=== PATIENT | female | born 1955 | race Caucasian/White ===

== ENCOUNTER → 2021-09-04 13:02 | Outpatient (CLI) | payer OTHER, SELFPAY ==
--- NOTE | 2021-09-04 13:12 | XR_ITS ---
PROCEDURE: XR CHEST 2V CLINICAL HISTORY: rule out tb COMPARISON: No exams were available for comparison FINDINGS: The cardiomediastinal silhouette and pulmonary vascularity are within normal limits. The lungs are clear without infiltrates, suspicious nodules, or pleural effusions. Faint nodular opacity present to the right the right T7 transverse process possibly due to summation artifact or granuloma. Calcified granuloma is present in the left lung base medially. There is moderate thoracolumbar scoliosis convex right. There is also kyphosis of the thoracic spine. IMPRESSION: No acute finding. No evidence of active granulomatous process. Calcified granulomas are present consistent with granulomatous disease Dictated by: Enio Victoria MD 09/04/2021 14:14 Enio Victoria MD in [place] 09/04/2021 14:14
== END ==
PROVIDERS: PCP Emergency Medicine; Visit Provider Nurse Practitioner Family
DX: R76.11 Nonspecific reaction to tuberculin skin test without active tuberculosis (principal)
CPT/HCPCS: 71046

== ENCOUNTER 2023-04-23 08:06 | Emergency (ER) | payer BC, SELFPAY ==
[2023-04-23 08:07] VITALS: BP 127/82; PULSE 111; RESP 18; TEMP 36.3; O2SAT 93; BMI 18.8
[2023-04-23 08:30] VITALS: BP 120/78; PULSE 53; O2SAT 94
--- NOTE | 2023-04-23 08:45 | XR_ITS ---
FINAL REPORT CLINICAL HISTORY: eval right wrist for FB, glass COMPARISON: None FINDINGS: RIGHT WRIST Three views demonstrate no acute fracture or dislocation. The visualized joint spaces are normally aligned. The soft tissues are unremarkable. No evidence of radiopaque foreign body. IMPRESSION: No evidence of radiopaque foreign body. No acute bony abnormality. Reviewed, Interpreted and Dictated by Lyle Avilez III, MD Transcribed by Shiela Anderson Authenticated and [facility]
--- NOTE | 2023-04-23 08:51 | HMH.EDGENADL ---
Discharge Plan Disposition Patient Disposition: Home, Self-Care Prescriptions Prescriptions: No Action escitalopram oxalate [Lexapro] 20 mg tablet 20 mg PO DAILY Qty: 90 2RF Referrals Follow up/Referrals: Mikey Roach MD [Primary Care Provider] - See instructions Clinical Impressions Clinical Impression: Laceration of wrist, right Instructions Patient Instructions: DI for Laceration Repair Discharge ED Provider: Sam Rubio General Adult HPI General Chief complaint: Wound/Laceration Stated complaint: AO@home 04/23 RT wrist lac Time Seen by Provider: 04/23/23 08:21 Mode of Arrival: Ambulatory Source of Information: Patient Limitations: No Limitations Description of Symptoms (Recalled from ER Triage Doc. by RN): Presents to ED with complaints of a laceration to the right wrist that occured during washing dishes [employer]. Denies blood thinners. Manual pressure applied upon arrvial, active bleeding noted. +PMS. Tetanus UTD History of Present Illness HPI narrative: Patient is a 67-year-old female presenting with a right wrist laceration. She was cleaning dishes when a glass broke and a large shard of glass lacerated the volar aspect of her right wrist. She has had a pressure dressing on this since this happened and drove in. There is no pulsatile bleeding associate with this. She believes she is up-to-date on tetanus. There were no foreign bodies that she is concerned about as this was a large shard of glass. Related Data Previous Rx's Medication Instructions Recorded escitalopram oxalate 20 mg tablet 20 mg PO DAILY #90 tabs 04/08/22 (Lexapro) Allergies Allergy/AdvReac Type Severity Reaction Status Date / Time No Known Allergies Allergy Unverified 07/19/19 12:47 [facility] Disclaimer: The information contained in this section may have been updated after the patient was seen, as this information can be updated by other users. Social History Smoking Status: Current every day smoker alcohol intake: never current occupational status: other Travel in the last 8 weeks: None ROS Obtained: Yes All systems reviewed & no additional complaints except as documented Physical Exam General General appearance: alert Respiratory Respiratory exam: Present normal lung sounds bilaterally Cardiovascular Cardiovascular exam: Present regular rate; Absent tachycardia Extremities Exam Extremities exam: Present other (Right wrist there is a 2 cm vertically oriented laceration over the radial aspect of the distal forearm there is no pulsatile bleeding but constant venous oozing) Neurological Exam Neurological exam: Present alert and oriented X3 Medical Decision Making Js Inquiry Pt receiving controlled substance: No Vital Signs: 04/23/23 08:07 04/23/23 08:30 04/23/23 09:00 Temperature 97.4 F L Temperature Source Oral Pulse Rate 53 L 89 Pulse Rate [Left] 111 H Respiratory Rate 18 Blood Pressure 120/78 115/71 Blood Pressure [Left Arm] 127/82 Blood Pressure Mean [Left Arm] 97 Blood Pressure Source [Left Arm] Automatic Cuff Blood Pressure Position Sitting Blood Pressure Position [Left Arm] Sitting 02 Sat by Pulse Oximetry 93 L 94 L 92 L Oxygen Delivery Method Room Air Orders (Tests/Meds): ORDERS Category Date Time Status Wrist XR right minimum 3 views [XR wrist RT min 3V] Exams 04/23/23 08:45 Taken Stat Medical Decision Narrative: 67-year-old female presenting with laceration to the volar wrist. Laceration was repaired. There is some constant oozing after this we placed a Coban dressing and will reassess in about 30 minutes to make sure that there is not an expanding or ongoing hemorrhage. This was just superficial to the radial artery however there was no evidence of any injury to the radial artery or its branches as there is no arterial pulsatile bleeding. X-ray has been obtained as well to evaluate and rule out foreign body that has
[2023-04-23 09:00] VITALS: BP 115/71; PULSE 89; O2SAT 92
[2023-04-23 09:30] VITALS: BP 95/62; PULSE 95; O2SAT 92
[2023-04-23 09:43] VITALS: BP 100/74; PULSE 88; RESP 16; TEMP 36.3; O2SAT 94
== END 2023-04-23 09:44 | disposition home or self-care (01) ==
PROVIDERS: Emergency Provider Student in an Organized Health Care Education/Training Program; PCP Emergency Medicine
DX: S61.511A Laceration without foreign body of right wrist, initial encounter (principal); W25.XXXA Contact with sharp glass, initial encounter; Y93.G1 Activity, food preparation and clean up; F17.200 Nicotine dependence, unspecified, uncomplicated
CPT/HCPCS: 12001; 73110; 99283

== ENCOUNTER 2024-10-06 17:31 | Inpatient (IN) | payer BC, SELFPAY ==
[2024-10-06] VITALS (7 sets, daily range): BP systolic 108–138; BP diastolic 68–82; PULSE 63–115; RESP 18–20; TEMP 36.7–36.8; O2SAT 91–93; BMI 19.2
--- NOTE | 2024-10-06 17:34 | ED_ITS ---
<Statement entered by Sam Rubio MD - 10/06/24 21:31> I was consulted by the MICHAEL, and we discussed the complexity of the problems being addressed. I approved the treatment and management plan for this patient's care in the emergency department, thus performing a substantive portion of the medical decision making. Sam Rubio MD, [place], FACEP Discharge Plan Disposition Patient Disposition: Admitted Condition: Fair Clinical Impressions Clinical Impression: Acute exacerbation of chronic obstructive pulmonary disease, Acute hypoxemic respiratory failure Discharge ED Provider: Sam Rubio HPI General Chief Complaint: Upper Respiratory Infection Stated Complaint: SOA,weak Time Seen by Provider: 10/06/24 17:34 History of Present Illness HPI narrative: Patient presents for evaluation of shortness of air, congestion and generalized weakness. 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 Patient states however the last couple of days she has had increasing weakness increased work of breathing and dyspnea on exertion. Patient does have a known history of COPD not on long- term oxygen nor utilizing nebulizers. Patient is also a longtime smoker smoking approximately a pack a day. She denies any fever chills hemoptysis hematochezia melena nausea vomiting diarrhea. Related Data Previous Rx's ?Medication ?Instructions ?Recorded escitalopram oxalate 20 mg tablet 20 mg PO DAILY #90 tabs 04/08/22 (Lexapro) Allergies Allergy/AdvReac Type Severity Reaction Status Date / Time No Known Allergies Allergy Unverified 07/19/19 12:47 [facility] Disclaimer: The information contained in this section may have been updated after the patient was seen, as this information can be updated by other users. Medical History (Updated 10/06/24 @ 20:06 by Katelyn Shaikh RN) COPD (chronic obstructive pulmonary disease) Surgical History (Updated 10/06/24 @ 20:06 by Katelyn Shaikh RN) History of tubal ligation Family History (Updated 10/06/24 @ 20:06 by Katelyn Shaikh RN) Other COPD (chronic obstructive pulmonary disease) Cancer Social History (Updated 10/06/24 @ 20:06 by Katelyn Shaikh RN) Smoking Status: Current every day smoker alcohol intake: never current occupational status: employed and other Travel in the last 8 weeks: None Have you lived/traveled outside US in past 30 days?: No Contact w/someone who lives/traveled outside US past 30 days?: No Exposure to someone with infectious disease in past 14 days?: No Do you have a fever (greater than 100.4 F or 38 C)?: No Have you tested positive for COVID-19: No Exposed to someone with COVID-19 in past 14 days?: No Do you have a sore throat?: No Do you have a cough?: No Do you have any weakness?: Yes Do you have any diarrhea?: No Are you experiencing any unusual bleeding?: No Do you have any muscle aches/pain?: No Do you have any abdominal pain?: No Are you experiencing loss of taste or smell?: No ROS Obtained: Yes Systems reviewed as appropriate & no additional complaints except as documented Physical Exam General General appearance: alert and in no apparent distress Respiratory Respiratory exam: Present wheezes and accessory muscle use; Absent respiratory distress Cardiovascular Cardiovascular exam: Present tachycardia Neurological Exam Neurological exam: Present alert and oriented X3 HEART Score HEART Score HEART Score assessment performed?: No Critical Care Critical Care Time Critical Care Time: No Medical Decision Making Medical Records Medical records reviewed: Yes I reviewed the patient's medical records. Js Inquiry Pt receiving controlled substance: No Vital Signs Vital Signs: 10/06/24 17:41 10/06/24 18:30 10/06/24 19:00 Temperature 98.0 F Temperature Source Oral Pulse Rate 96 H Pulse Rate [Right Radial] 115 H Respiratory Rate 20 Blood Pressure 123/73 119/70 Blood Pressure [Right Arm] 138/82 Blood Pressure Mean 80 Blood Pressure Mean [Right Arm] 100 02 Sat by Pulse Oximetry 92 L 91 L Oxygen Delivery Method Room Air Room Air 10/06/24 19:40 Temperature 98.2 F Temperature Source Pulse Rate 63 Pulse Rate [Right Radial] Respiratory Rate 18 Blood Pressure 108/68 L Blood Pressure [Right Arm] Blood Pressure Mean Blood Pressure Mean [Right Arm] 02 Sat by Pulse Oximetry Oxygen Delivery Method Room Air Lab Data Lab results reviewed: Yes I reviewed the patient's lab results. Labs: Lab Results 10/06/24 17:45: WBC 12.6 H, RBC 5.63 H, Hgb 16.6 H, Hct 50.8 H, MCV 90.2, MCH 29.4, MCHC 32.6, RDW 12.9, Plt Count 251, MPV 7.7, Neut % (Auto) 79.6, Lymph % (Auto) 12.9, [place] % (Auto) 5.9, Eos % (Auto) 0.7, Baso % (Auto) 0.9, Neut # (Auto) 10.0 H, Lymph # (Auto) 1.6, [place] # (Auto) 0.8, Eos # (Auto) 0.1, Baso # (Auto) 0.1, VBG pH 7.39, VBG pCO2 40.9, VBG pO2 43.4 H, VBG HCO3 24.1, VBG Total CO2 25.3, VBG O2 Saturation 82.6 H, VBG Base Excess -0.9, VBG Lactic Acid 1.3, S odium 132 L, Potassium 3.9, Chloride 100, Carbon Dioxide 27, Anion Gap 8.9, BUN 9, Creatinine 0.50 L, Estimated Creat Clear 41, Estimated GFR 123, Est GFR ( Amer) 149, Glucose 111 H, Calcium 9.0, Total Bilirubin 0.7, AST 35, ALT 21, Alkaline Phosphatase 78, Total Protein 7.5, Albumin 4.5, Globulin 3.0, Albumin/Globulin Ratio 1.5 10/06/24 17:55: SARS-CoV-2 (PCR) Not detected, Influenza A Untype (PCR) Not detected, Influenza Type B (PCR) Not detected 10/06/24 17:45 10/06/24 17:45 Response Orders (Tests/Meds): ED MEDICATIONS Discontinued Medications Generic Name Dose Route Start Last Admin Trade Name Freq PRN Reason Stop Dose Admin Albuterol/Ipratropium 3 ml 10/06/24 17:44 10/06/24 18:03 Ipratropium/Albuterol 3 Ml Neb 10/06/24 17:45 3 ml ONCE ONE Administration Albuterol/Ipratropium 9 ml 10/06/24 18:54 10/06/24 20:21 Ipratropium/Albuterol 3 Ml Neb 10/06/24 18:55 9 ml ONCE ONE Administration Dexamethasone Sodium Phosphate 10 mg 10/06/24 17:44 10/06/24 18:02 Dexamethasone 4mg/Ml 5ml Mdv IV 10/06/24 17:45 10 mg ONCE ONE Administration ORDERS Category Date Time Status Chest XR 2 view (NOT portable) [XR chest 2V] Stat Exams 10/06/24 17:43 Completed CBC w/Auto Diff [Complete Blood Count Auto Diff] Stat Lab 10/06/24 17:45 Completed CMP [Comprehensive Metabolic Panel] Stat Lab 10/06/24 17:45 Completed Full Resp Panel w/COVID ([facility]) Routine Lab 10/06/24 19:41 Received HIV (1&2) Antibody Rapid Stat Lab 10/06/24 17:45 Received Hep C Ab with Reflex to RNA Stat Lab 10/06/24 17:45 Received Rapid PCR Covid and Flu A/B Stat Lab 10/06/24 17:55 Completed VBG [Venous Blood Gas] Stat RT 10/06/24 17:45 Completed MDM Narrative Medical Decision Narrative: In summary patient is a 69-year-old female who presents to the emergency department for evaluation of dyspnea. Patient is initially normotensive at a blood pressure of 138/82 tachycardic at 115 breathing 20 times a minute satting at 90% on room air upon arrival, afebrile. Physical exam is remarkable for end expiratory wheezing in all 4 moralez and rhonchi in the lower lung moralez with accessory muscle use. Differential diagnosis includes COPD exacerbation versus pneumonia versus viral infection etc. Initial workup will be conducted with hematologic labs plain film chest x-ray COVID and flu swab. Initial interventions include Decadron DuoNeb. Initial workup reviewed by me shows her hematologic labs are nonactionable COVID and flu swabs are negative and my informed interpretation of her plain film chest x-ray shows no acute infiltrates but does show chronic changes of COPD. Upon repeat evaluation patient still is subjectively short of breath at rest. Given this I had the patient ambulate about the emergency department and her oxygen saturation dropped to 83%. Given this I had interactive discussion with hospital medicine regarding patient management and she will be admitted for further evaluation and care.
--- NOTE | 2024-10-06 17:43 | XR_ITS ---
PROCEDURE INFORMATION: Exam: XR Chest Exam date and time: 10/06/2024 5:50 PM Age: 69 years old Clinical indication: Dyspnea TECHNIQUE: Imaging protocol: Radiologic exam of the chest. Views: 2 views. COMPARISON: No relevant prior studies available. FINDINGS: Lungs: No evidence of acute pulmonary disease or infiltrates Pleural spaces: No large effusion or pneumothorax. Heart/Mediastinum: No evidence of mediastinal widening or cardiac silhouette enlargement; the mediastinum and heart appear within normal limits for contour and size. Vasculature: There are calcifications of the aortic arch. Bones/joints: There is a dextroscoliotic curvature of the spine. Other findings: The patient is rotated on the examination which somewhat alters the expected anatomic relationships and limits the study. IMPRESSION: No dense parenchymal consolidation, pleural effusion, or pneumothorax.
--- NOTE | 2024-10-06 17:46 | ECG_ITS ---
APPROVED REPORT Exam: Resting ECG HR:101 bpm ECG Measurements Heart Rate 101 AXES WA 162 P 80 QRSd 68 QRS 73 QT 319 T 73 QTc 377 Conclusion SINUS TACHYCARDIA ABNORMAL RHYTHM ECG UNCONFIRMED REPORT Electronically signed by : Jaydon Rubio, 10/06/2024 23:03:19
[2024-10-06 17:55] LABS: Basophils # 0.1 K/mm3 (0-0.2); Basophils % 0.9 % (0.1-2.0); Eosinophils # 0.1 K/mm3 (0.0-0.4); Eosinophils % 0.7 % (0.1-12.0); Hematocrit 50.8 % (37.0-47.0); Hemoglobin 16.6 g/dL (12.2-16.2); Lymphocytes # 1.6 K/mm3 (0.7-4.5); Lymphocytes % 12.9 % (10-50); Mean Corpuscular HGB Conc 32.6 g/dL (31.8-35.4); Mean Corpuscular Hemoglobin 29.4 pg (27.0-31.2); Mean Corpuscular Volume 90.2 fl (81-99); Mean Platelet Volume 7.7 fl (7.4-10.4); Monocytes # 0.8 K/mm3 (0.1-1.0); Monocytes % 5.9 % (1.7-9.3); Neutrophils % 79.6 % (37.0-80.0); Platelet Count 251 K/mm3 (142-424); Red Blood Count 5.63 M/mm3 (4.20-5.40); Red Cell Distribution Width 12.9 % (11.5-17.5); White Blood Count 12.6 K/mm3 (4.8-10.8)
[2024-10-06 17:56] LABS: Lactate Venous 1.3 mmol/L (0.4-2.0); VBG Base Excess -0.9 mmol/L (-2.4-2.3); VBG HCO3 24.1 mmol/L (23-30); VBG Oxygen Saturation 82.6 % (50-70); VBG PCO2 40.9 mmol/L (35-51); VBG PH 7.39 mmol/L (7.31-7.41); VBG PO2 43.4 mmol/L (28-40); VBG Total CO2 25.3 mmol/L (23-27)
[2024-10-06 17:59] LABS: Coronavirus 19, PCR Not Detected (NotDetected); Influenza A, PCR Not Detected (NotDetected); Influenza B, PCR Not Detected (NotDetected)
[2024-10-06 18:02] LABS: Albumin Level 4.5 g/dl (3.5-5.0); Chloride 100 mmol/L (98-107); Potassium 3.9 mmoL/L (3.5-5.1); Sodium 132 mmol/L (136-145)
[2024-10-06] MEDS: DEXAMETHASONE 4MG/ML 5ML MDV 10 MG IV (18:02)
[2024-10-06] MEDS: IPRATROPIUM/ALBUTEROL 3 ML NEB IH ×2 (18:03→23:24)
[2024-10-06 18:05] LABS: Alanine Aminotransferase 21 U/L (12-78); Albumin/Globulin Ratio 1.5 (1.1-1.8); Alkaline Phosphatase 78 U/L (38-126); Anion Gap 8.9 mEq/L (5-15); Aspartate Amino Transferase 35 U/L (14-36); Bilirubin,Total 0.7 mg/dl (0.2-1.3); Blood Urea Nitrogen 9 mg/dl (7-17); Carbon Dioxide 27 mmol/L (22.0-30.0); Creatinine Clearance Estimated 41 mL/min (50-200); Estimated Glomerular Filt Rate 123 ml/min (>60); GFR (African American) 149 ML/MIN (>60); Glucose 111 mg/dl (74-100); Total Protein,Serum 7.5 g/dl (6.3-8.2)
--- NOTE | 2024-10-06 18:48 | PC.NURSE ---
pt ambulated around the er making one complete lap with pulse ox reader and myself at pts side oxygen dropped to 87 on ra
--- NOTE | 2024-10-06 19:13 | PC.NURSE ---
Report recieved from January RN Pt resting quietly in bed Skin pink warm and dry Pt on O2 per nasal cannula REsp full and easy. Speech clear and appropriate
--- NOTE | 2024-10-06 19:36 | PC.NURSE ---
Report called to Katelyn RN Pt awaiting transport to the floor. Pt aware of plans for admission at bedside
[2024-10-06 19:45] LABS: Adenovirus,PCR Not Detected (NotDetected); Bordetella Pertussis Not Detected (NotDetected); Chlamydophila Pneumoniae, PCR Not Detected (NotDetected); Coronavirus 19, PCR Not Detected (NotDetected); Coronavirus 229E Not Detected (NotDetected); Coronavirus NL63 Not Detected (NotDetected); Coronavirus OC43 Not Detected (NotDetected); Coronovirus HKU1,PCR Not Detected (NotDetected); Human Metapneumovirus Not Detected (NotDetected); Influenza A, PCR Not Detected (NotDetected); Influenza AH1, 2009 Not Detected (NotDetected); Influenza AH1, PCR Not Detected (NotDetected); Influenza AH3,PCR Not Detected (NotDetected); Influenza B, PCR Not Detected (NotDetected); Mycoplasma Pneumoniae, PCR Not Detected (NotDetected); Parainfluenza 1, PCR Not Detected (NotDetected); Parainfluenza 2, PCR Not Detected (NotDetected); Parainfluenza 3, PCR Not Detected (NotDetected); Parainfluenza 4, PCR Not Detected (NotDetected); Respiratory Syncytial Virus Not Detected (NotDetected)
--- NOTE | 2024-10-06 19:46 | PC.NURSE ---
Patient arrived to floor via stretcher from ED at 19:44.
[2024-10-06] MEDS: IPRATROPIUM/ALBUTEROL 3 ML NEB 9 ML IH (20:21)
--- NOTE | 2024-10-06 20:27 | PC.NURSE ---
Admission and home medication reconciliation completed. Shane ADAMS was informed at this time.
--- NOTE | 2024-10-06 21:33 | P.HP_ITS ---
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 Patient has been suffering from mellissa rtness of breath productive cough, GARLAND since last night. Also admits to hot/cold spells occurring since Thursday. Patient had 1 episode of diarrhea this afternoon. States she smokes daily, but has never been diagnosed with COPD. Also denies black lung, asthma, restrictive or obstructive lung disease history. 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 Patient COVID-negative in emergency room. Denies recent travel, chest pain, lower extremity swelling, blurry vision, headaches, abdominal pain, ataxia. Patient also denies history of MIs, CVA, or obstructive sleep apnea. Patient's present with patient emergency room and collaborates patient's story. Portable chest x-ray done in emergency room shows no infiltrates, effusions, or acute lung disease. [facility] Disclaimer: The information contained in this section may have been updated after the patient was seen, as this information can be updated by other users. Medical History (Updated 10/07/24 @ 00:02 by Indra Lynn MD) COPD (chronic obstructive pulmonary disease) Surgical History (Updated 10/06/24 @ 20:06 by Katelyn Shaikh RN) History of tubal ligation Family History (Updated 10/06/24 @ 20:06 by Katelyn Shaikh RN) Other COPD (chronic obstructive pulmonary disease) Cancer Social History (Updated 10/06/24 @ 20:06 by Katelyn Shaikh RN) Smoking Status: Current every day smoker alcohol intake: never current occupational status: employed and other Travel in the last 8 weeks: None Have you lived/traveled outside US in past 30 days?: No Contact w/someone who lives/traveled outside US past 30 days?: No Exposure to someone with infectious disease in past 14 days?: No Do you have a fever (greater than 100.4 F or 38 C)?: No Have you tested positive for COVID-19: No Exposed to someone with COVID-19 in past 14 days?: No Do you have a sore throat?: No Do you have a cough?: No Do you have any weakness?: Yes Do you have any diarrhea?: No Are you experiencing any unusual bleeding?: No Do you have any muscle aches/pain?: No Do you have any abdominal pain?: No Are you experiencing loss of taste or smell?: No Other Medical History Have you received the Flu Vaccine for this season: Yes Have you received the Pneumonia Vaccine: No Review of Systems Review of Systems Review of systems:: pertinent systems reviewed and negative unless documented below Constitutional Constitutional: Reports system reviewed and no additional complaints, except as documented Meds Home Medications and Allergies Home Medications ?Medication ?Instructions ?Recorded ?Confirmed ?Type escitalopram oxalate 20 mg tablet 20 mg PO DAILY #90 tabs 04/08/22 10/06/24 Rx (Lexapro) New Prescriptions to Start Prescriptions: Allergies Allergy/AdvReac Type Severity Reaction Status Date / Time No Known Allergies Allergy Unverified 07/19/19 12:47 Exam Data for Last 24 hours Vital signs and Labs for Last 24 Hours: Temp Pulse Resp BP Pulse Ox O2 Del Method O2 Flow Rate 98.2 F 104 H 18 108/68 L 93 L Nasal Cannula 2 10/06/24 19:40 10/06/24 20:22 10/06/24 19:40 10/06/24 19:40 10/06/24 20:22 10/06/24 20:22 10/06/24 20:22 Laboratory Results - last 24 hr 10/06/24 17:45: WBC 12.6 H, RBC 5.63 H, Hgb 16.6 H, Hct 50.8 H, MCV 90.2, MCH 29.4, MCHC 32.6, RDW 12.9, Plt Count 251, MPV 7.7, Neut % (Auto) 79.6, Lymph % (Auto) 12.9, [place] % (Auto) 5.9, Eos % (Auto) 0.7, Baso % (Auto) 0.9, Neut # (Auto) 10.0 H, Lymph # (Auto) 1.6, [place] # (Auto) 0.8, Eos # (Auto) 0.1, Baso # (Auto) 0.1, VBG pH 7.39, VBG pCO2 40.9, VBG pO2 43.4 H, VBG HCO3 24.1, VBG Total CO2 25.3, VBG O2 Saturation 82.6 H, VBG Base Excess -0.9, VBG Lactic Acid 1.3, Sodium 132 L, Potassium 3.9, Chloride 100, Carbon Dioxide 27, Anion Gap 8.9, BUN 9, Creatinine 0.50 L, Estimated Creat Clear 41, Estimated GFR 123, Est GFR ( Amer) 149, Glucose 111 H, Calcium 9.0, Total Bilirubin 0.7, AST 35, ALT 21, Alkaline Phosphatase 78, Total Protein 7.5, Albumin 4.5, Globulin 3.0, Albumin/Globulin Ratio 1.5 10/06/24 17:55: SARS-CoV-2 (PCR) Not detected, Influenza A Untype (PCR) Not detected, Influenza Type B (PCR) Not detected I & O for Last 24 hours: Intake & Output 10/03/24 10/04/24 10/05/24 10/06/24 23:59 23:59 23:59 23:59 Weight 47.627 kg *Routine HEENT Exam Head: Present normocephalic Eye: Present EOMI and normal accommodation ENT: Present mucous membranes moist *Routine Neck Exam Neck: Present supple and full ROM *Routine Respiratory Exam Respiratory: Present prolonged expiratory phase and diminished air movement *Routine Cardiovascular Exam Cardiovascular: Present RRR, Normal S1 and Normal S2 *Routine Abdominal Exam Abdominal: Present soft and normoactive bowel sounds *Routine Rectal Exam Rectal:: deferred *Routine Genitalia Exam Genitalia:: deferred *Routine Extremities Exam Extremities: Present full ROM *Routine Skin Exam Skin: Present intact *Routine Neurological Exam Neurological: Present alert and oriented X3 Assessment and Plan *Assessment and plan (1) Acute hypoxemic respiratory failure: Status: Acute Category: Medical Code(s): J96.01 - Acute respiratory failure with hypoxia (2) Acute exacerbation of chronic obstructive pulmonary disease: Status: Acute Category: Medical Code(s): J44.1 - Chronic obstructive pulmonary disease with (acute) exacerbation (3) Acute bronchitis: Status: Acute Category: Medical Code(s): J20.9 - Acute bronchitis, unspecified 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 Patient has been suffering from shortness of breath productive cough, [place] since last night. Portable chest x- ray done in emergency room shows no infiltrates, effusions, or acute lung disease. Problems as listed below: ?Labs reviewed at time of hospital admission: ? WBC 12.6, Hg 16.6, platelets 251, NA 132, K3.9, CL 100, CO2 27, BUN 9, CR 0.5, GLU 111. I will repeat CBC/mag/BMP in AM. Acute bronchitis likely secondary to undiagnosed COPD: ? Admits to daily smoking, but does not visit doctors. Likely suffering from un diagnosed COPD. Solu-Medrol 40 mg IV every 6, DuoNebs 3 mL inhaled Q6, albuterol 2.5 mg inhaled Q6 as needed shortness of breath. Consult pulmonary since patient will likely need outpatient follow-up. Home oxygen evaluation since patient desatted to 80% in emergency room. Doxycycline 100 mg IV every 12. Wean from oxygen as tolerated during this hospitalization. I will order respiratory panel, sputum culture during hospitalization. Hyponatremia possibly dehydration versus COPD related SIADH: ? Check urine osmolarity, urine sodium, urine creatinine. Cautiously start 75 cc/h normal saline overnight to empirically treat patient for dehydration. Recheck sodium levels in AM. Daily smoker: 12 minutes smoking sensation education given by myself in emergency room. Nicotine patch 21 mg transdermal daily as needed nicotine cravings. PPx Lovenox 40 mg subcutaneous daily CODE STATUS DNI per patient request MDM: [place]: Moderate. Patient suffering from acute COPD exacerbation with systemic weakness/shortness of breath. Data: High. See above. Patient's acted as independent historian during interview today. I spoke with the emergency room physician and agree the patient requires hospitalization due to hypoxia in emergency room after multiple breathing treatments/glucocorticoids. Risk: Moderate. Prescription drug management as listed above. Solu-Medrol IV, IV doxycycline, DuoNebs as listed above. I made decision to admit patient to hospital due to failing ER management of acute bronchitis. 35 minutes of total care time spent on patient by Dr. Lynn 10/06/2024
[2024-10-06] MEDS: DOXYCYCLINE HYCL 100 MG TABLET PO (22:07)
[2024-10-06] MEDS: METHYLPREDNISOLONE SOD SUCC 40MG VIAL 40 MG IV (22:07)
--- NOTE | 2024-10-06 22:13 | PC.NURSE ---
Patient's oxygen flow via nasal cannula was humidified at this time per her report of dry mucous membranes.
[2024-10-06 22:46] LABS: Rhinovirus/Enterovirus Detected (NotDetected)
--- NOTE | 2024-10-06 23:25 | P.HP_ITS ---
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 Patient has been suffering from shortness of breath productive cough, GARLAND since last night. Also admits to h ot/cold spells occurring since Thursday. Patient had 1 episode of diarrhea this afternoon. States she smokes daily, but has never been diagnosed with COPD. Also denies black lung, asthma, restrictive or obstructive lung disease history. 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 Patient COVID-negative in emergency room. Denies recent travel, chest pain, lower extremity swelling, blurry vision, headaches, abdominal pain, ataxia. Patient also denies history of MIs, CVA, or obstructive sleep apnea. Patient's present with patient emergency room and collaborates patient's story. Portable chest x-ray done in emergency room shows no infiltrates, effusions, or acute lung disease. present with patient in emergency room and collaborates her story. [facility] Disclaimer: The information contained in this section may have been updated after the patient was seen, as this information can be updated by other users. Medical History (Updated 10/07/24 @ 00:02 by Indra Lynn MD) COPD (chronic obstructive pulmonary disease) Surgical History (Updated 10/06/24 @ 20:06 by Katelyn Shaikh RN) History of tubal ligation Family History (Updated 10/06/24 @ 20:06 by Katelyn Shaikh RN) Other COPD (chronic obstructive pulmonary disease) Cancer Social History (Updated 10/06/24 @ 20:06 by Katelyn Shaikh RN) Smoking Status: Current every day smoker alcohol intake: never current occupational status: employed and other Travel in the last 8 weeks: None Have you lived/traveled outside US in past 30 days?: No Contact w/someone who lives/traveled outside US past 30 days?: No Exposure to someone with infectious disease in past 14 days?: No Do you have a fever (greater than 100.4 F or 38 C)?: No Have you tested positive for COVID-19: No Exposed to someone with COVID-19 in past 14 days?: No Do you have a sore throat?: No Do you have a cough?: No Do you have any weakness?: Yes Do you have any diarrhea?: No Are you experiencing any unusual bleeding?: No Do you have any muscle aches/pain?: No Do you have any abdominal pain?: No Are you experiencing loss of taste or smell?: No Other Medical History Have you received the Flu Vaccine for this season: Yes Have you received the Pneumonia Vaccine: No Meds Home Medications and Allergies Home Medications ?Medication ?Instructions ?Recorded ?Confirmed ?Type escitalopram oxalate 20 mg tablet 20 mg PO DAILY #90 tabs 04/08/22 10/06/24 Rx (Lexapro) New Prescriptions to Start Prescriptions: Allergies Allergy/AdvReac Type Severity Reaction Status Date / Time No Known Allergies Allergy Unverified 07/19/19 12:47 Exam Data for Last 24 hours Vital signs and Labs for Last 24 Hours: Temp Pulse Resp BP Pulse Ox O2 Del Method O2 Flow Rate 98.2 F 106 H 18 108/68 L 93 L Nasal Cannula 2 10/06/24 19:40 10/06/24 23:24 10/06/24 19:40 10/06/24 19:40 10/06/24 20:22 10/06/24 23:00 10/06/24 23:00 Laboratory Results - last 24 hr 10/06/24 17:45: WBC 12.6 H, RBC 5.63 H, Hgb 16.6 H, Hct 50.8 H, MCV 90.2, MCH 29.4, MCHC 32.6, RDW 12.9, Plt Count 251, MPV 7.7, Neut % (Auto) 79.6, Lymph % (Auto) 12.9, [place] % (Auto) 5.9, Eos % (Auto) 0.7, Baso % (Auto) 0.9, Neut # (Auto) 10.0 H, Lymph # (Auto) 1.6, [place] # (Auto) 0.8, Eos # (Auto) 0.1, Baso # (Auto) 0.1, VBG pH 7.39, VBG pCO2 40.9, VBG pO2 43.4 H, VBG HCO3 24.1, VBG Total CO2 25.3, VBG O2 Saturation 82.6 H, VBG Base Excess -0.9, VBG Lactic Acid 1.3, Sodium 132 L, Potassium 3.9, Chloride 100, Carbon Dioxide 27, Anion Gap 8.9, BUN 9, Creatinine 0.50 L, Estimated Creat Clear 41, Estimated GFR 123, Est GFR ( Amer) 149, Glucose 111 H, Calcium 9.0, Total Bilirubin 0.7, AST 35, ALT 21, Alkaline Phosphatase 78, Total Protein 7.5, Albumin 4.5, Globulin 3.0, Albumin/Globulin Ratio 1.5 10/06/24 17:55: SARS-CoV-2 (PCR) Not detected, Influenza A Untype (PCR) Not detected, Influenza Type B (PCR) Not detected 10/06/24 19:41: Chlamy pneumoniae PCR Not detected, Adenovirus (PCR) Not detected, B. pertussis DNA (PCR) Not detected, Coronavirus OC43 (PCR) Not detected, Coronavirus HKU1 (PCR) Not detected, Coronavirus 229E (PCR) Not detected, SARS-CoV-2 (PCR) Not detected, Coronavirus NL63 (PCR) Not detected, Human Metapneumovir PCR Not detected, Influenza A (H1) PCR Not detected, Influ A (H1N1/09) PCR Not detected, Influenza A (H3) PCR Not detected, Influenza Type A (PCR) Not detected, Influenza Type B (PCR) Not detected, M. 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 Patient has been suffering from shortness of breath productive cough, GARLAND since last night. Also admits to hot/cold spells occurring since Thursday. Patient had 1 episode of diarrhea this afternoon. States she smokes daily, but has never been diagnosed with COPD. Also denies black lung, asthma, restrictive or obstructive lung disease history. 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 Patient admitted for acute bronchitis with problems as listed below:
[2024-10-07] MEDS: 0.9 % SODIUM CHLORIDE 1000ML 1,000 ML 75 ML IV ×2 (00:50→14:35)
[2024-10-07] MEDS: METHYLPREDNISOLONE SOD SUCC 40MG VIAL 40 MG IV ×3 (03:04→14:35)
[2024-10-07 04:00] VITALS: BP 99/56; PULSE 117; RESP 16; TEMP 36.9; O2SAT 94; BMI 16.5
--- NOTE | 2024-10-07 04:00 | PC.NURSE ---
Ms Sherry Mason was newly admitted this shift on behalf of the documented diagnosis: COPD exacerbation. She stated that her respiratory symptoms plus malaise started on Thursday, and her shortness of breath has been getting worse since. She has a productive, loose, intermittent cough. Her sputum sample presented as thick, slightly opaque, and clear. She also reported having dry mucous membranes and a poor appetite with her symptoms. Upon auscultation of her lungs, expiratory wheezing and rhonchi could be heard bilaterally. Patient's heart rate became more elevated as the shift went on ( > 90, < 120). Her oxygen saturations have remained > 90% on 2 L of oxygen via nasal cannula. She has not reported any worsening in her shortness of breath since her arrival to the floor; however, patient does become winded with ambulation very easily. She is alert and oriented x4. Patient was given doxycycline and methylprednisolone per DEC this shift. Normal saline is infusing at 75 mL/hr. Duonebs are scheduled. At this time, the patient is resting supine in bed without any further complaints. Her grandson is residing at the bedside. Call light within reach. Sputum sample was collected and sent this shift (00:58). Entero/Rhino detected by respiratory panel, precautions in place.
[2024-10-07] MEDS: IPRATROPIUM/ALBUTEROL 3 ML NEB IH (06:10)
[2024-10-07 06:12] VITALS: PULSE 101; O2SAT 89
[2024-10-07 06:54] LABS: Basophils % 0.2 % (0.1-2.0); Hematocrit 44.3 % (37.0-47.0); Lymphocytes # 0.7 K/mm3 (0.7-4.5); Lymphocytes % 10.1 % (10-50); Mean Corpuscular HGB Conc 33.1 g/dL (31.8-35.4); Mean Corpuscular Hemoglobin 30.3 pg (27.0-31.2); Mean Corpuscular Volume 91.5 fl (81-99); Monocytes # 0.1 K/mm3 (0.1-1.0); Monocytes % 1.2 % (1.7-9.3); Neutrophils # 6.3 K/mm3 (1.8-7.8); Neutrophils % 88.5 % (37.0-80.0); Platelet Count 243 K/mm3 (142-424); Red Blood Count 4.85 M/mm3 (4.20-5.40); Red Cell Distribution Width 12.9 % (11.5-17.5); White Blood Count 7.1 K/mm3 (4.8-10.8)
[2024-10-07 06:57] LABS: Chloride 106 mmol/L (98-107); Sodium 134 mmol/L (136-145)
[2024-10-07 07:00] LABS: Anion Gap 6.8 mEq/L (5-15); Blood Urea Nitrogen 11 mg/dl (7-17); Carbon Dioxide 25 mmol/L (22.0-30.0); Creatinine Clearance Estimated 35 mL/min (50-200); Estimated Glomerular Filt Rate 123 ml/min (>60); GFR (African American) 149 ML/MIN (>60); Potassium 3.8 mmoL/L (3.5-5.1)
[2024-10-07 07:01] LABS: Calcium 8.6 mg/dl (8.4-10.2); Glucose 165 mg/dl (74-100); Magnesium 1.8 mg/dl (1.6-2.3)
[2024-10-07 07:04] LABS: MANUAL DIFFERENTIAL MANUAL DIFFERENTIAL (MANUAL DIFF)
[2024-10-07 08:00] VITALS: BP 101/56; PULSE 113; RESP 20; TEMP 36.7; O2SAT 91
[2024-10-07 08:24] LABS: Lymphocytes % 9 % (10-50); Monocytes % 1 % (2-9); Neutrophils % 90 % (42-76); Platelet Estimate Normal; RBC Morphology Normal; Total Cells Counted 100
[2024-10-07 08:30] LABS: Hemoglobin 14.7 g/dL (12.2-16.2)
[2024-10-07] MEDS: DOXYCYCLINE HYCL 100 MG TABLET PO ×2 (08:32→21:04)
[2024-10-07] MEDS: ENOXAPARIN 40MG/0.4ML SYRINGE 40 MG SUBCUT (08:32)
--- NOTE | 2024-10-07 09:55 | EXP.PULM.CON ---
History of Present Illness History of present illness: Ms. Mason is a 69-year-old female seen to reach resident reported history of dementia significant smoking history presented to the ER with worsening respiratory distress cough and pulmonary was called for further evaluation and management. On admission patient is a current smoker, greater than [id number] smoking history, not using any inhalers or oxygen at baseline. [facility] Disclaimer: The information contained in this section may have been updated after the patient was seen, as this information can be updated by other users. Medical History (Updated 10/07/24 @ 00:02 by Indra Lynn MD) COPD (chronic obstructive pulmonary disease) Surgical History (Updated 10/06/24 @ 20:06 by Katelyn Shaikh RN) History of tubal ligation Family History (Updated 10/06/24 @ 20:06 by Katelyn Shaikh RN) Other COPD (chronic obstructive pulmonary disease) Cancer Social History (Updated 10/06/24 @ 20:06 by Katelyn Shaikh RN) Smoking Status: Current every day smoker alcohol intake: never current occupational status: employed and other Travel in the last 8 weeks: None Have you lived/traveled outside US in past 30 days?: No Contact w/someone who lives/traveled outside US past 30 days?: No Exposure to someone with infectious disease in past 14 days?: No Do you have a fever (greater than 100.4 F or 38 C)?: No Have you tested positive for COVID-19: No Exposed to someone with COVID-19 in past 14 days?: No Do you have a sore throat?: No Do you have a cough?: No Do you have any weakness?: Yes Do you have any diarrhea?: No Are you experiencing any unusual bleeding?: No Do you have any muscle aches/pain?: No Do you have any abdominal pain?: No Are you experiencing loss of taste or smell?: No Review of Systems Constitutional Constitutional: Reports anorexia, Reports body ache(s) and Reports fatigue Eyes Eyes: Denies eye discharge, Denies dry eyes, Denies irritation and Denies itchy eyes ENT Ears, Nose, Mouth, and Throat: Denies epistaxis, Denies facial pain, Denies lip swelling and Denies throat swelling *Cardiovascular Cardiovascular: Reports dyspnea and Reports dyspnea on exertion *Respiratory Respiratory: Reports change in phlegm color, Reports chest congestion, Reports cough, Reports dyspnea, Reports dyspnea on exertion, Reports excessive phlegm production, Denies hemoptysis, Denies pain on inspiration, Denies pain with cough and Reports wheezing *Gastrointestinal Gastrointestinal: Denies abdominal pain, Denies belching and Denies cramping *Musculoskeletal Musculoskeletal: Reports back pain, Reports myalgias and Reports other (No small joint swelling or Pain) Psychiatric Psychiatric: Denies homicidal ideation and Denies suicidal ideation Endocrine Endocrine: Reports fatigue and Denies heat intolerance Hematologic/Lymphatic Hematologic/Lymphatic: Denies easy bleeding and Denies lymphadenopathy Allergic/Immunologic Allergic/Immunologic: Denies itchy eyes, Denies lip swelling, Denies throat swelling and Reports wheezing Pulmonology Exam Inpatient Vital signs and Labs for Last 24 Hours: Temp Pulse Resp BP Pulse Ox O2 Del Method O2 Flow Rate 98.1 F 113 H 20 101/56 L 91 L Nasal Cannula 3 10/07/24 08:00 10/07/24 08:00 10/07/24 08:00 10/07/24 08:00 10/07/24 08:00 10/07/24 08:00 10/07/24 08:00 Laboratory Results - last 24 hr 10/06/24 17:45: WBC 12.6 H, RBC 5.63 H, Hgb 16.6 H, Hct 50.8 H, MCV 90.2, MCH 29.4, MCHC 32.6, RDW 12.9, Plt Count 251, MPV 7.7, Neut % (Auto) 79.6, Lymph % (Auto) 12.9, [place] % (Auto) 5.9, Eos % (Auto) 0.7, Baso % (Auto) 0.9, Neut # (Auto) 10.0 H, Lymph # (Auto) 1.6, [place] # (Auto) 0.8, Eos # (Auto) 0.1, Baso # (Auto) 0.1, VBG pH 7.39, VBG pCO2 40.9, VBG pO2 43.4 H, VBG HCO3 24.1, VBG Total CO2 25.3, VBG O2 Saturation 82.6 H, VBG Base Excess -0.9, VBG Lactic Acid 1.3, Sodium 132 L, Potassium 3.9, Chloride 100, Carbon Dioxide 27, Anion Gap 8.9, BUN 9, Creatinine 0.50 L, Estimated Creat Clear 41, Estimated GFR 123, Est GFR ( Amer) 149, Glucose 111 H, Calcium 9.0, Total Bilirubin 0.7, AST 35, ALT 21, Alkaline Phosphatase 78, Total Protein 7.5, Albumin 4.5, Globulin 3.0, Albumin/Globulin Ratio 1.5 10/06/24 17:55: SARS-CoV-2 (PCR) Not detected, Influenza A Untype (PCR) Not detected, Influenza Type B (PCR) Not detected 10/06/24 19:41: Chlamy pneumoniae PCR Not detected, Adenovirus (PCR) Not detected, B. pertussis DNA (PCR) Not detected, Coronavirus OC43 (PCR) Not detected, Coronavirus HKU1 (PCR) Not detected, Coronavirus 229E (PCR) Not detected, SARS-CoV-2 (PCR) Not detected, Coronavirus NL63 (PCR) Not detected, Human Metapneumovir PCR Not detected, Influenza A (H1) PCR Not detected, Influ A (H1N1/09) PCR Not detected, Influenza A (H3) PCR Not detected, Influenza Type A (PCR) Not detected, Influenza Type B (PCR) Not detected, M. pneumoniae (PCR) Not detected, Parainfluenza 1 (PCR) Not detected, Parainfluenza 2 (PCR) Not detected, Parainfluenza 3 (PCR) Not detected, Parainfluenza 4 (PCR) Not detected, RSV (PCR) Not detected, Entero/Rhino (PCR) Detected A 10/07/24 06:06: WBC 7.1 D, RBC 4.85, Hgb 14.7 D, Hct 44.3, MCV 91.5, MCH 30.3, MCHC 33.1, RDW 12.9, Plt Count 243, MPV 8.0, Neut % (Auto) 88.5 H, Lymph % (Auto) 10.1, [place] % (Auto) 1.2 L, Eos % (Auto) 0.0 L, Baso % (Auto) 0.2, Neut # (Auto) 6.3, Lymph # (Auto) 0.7, [place] # (Auto) 0.1, Eos # (Auto) 0.0, Baso # (Auto) 0.0, Total Counted 100, Neutrophils % (Manual) 90 H, Lymphocytes % (Manual) 9 L, Monocytes % (Manual) 1 L, Platelet Estimate Normal, RBC Morphology Normal, Sodium 134 L, Potassium 3.8, Chloride 106, Carbon Dioxide 25, Anion Gap 6.8, BUN 11, Creatinine 0.50 L, Estimated Creat Clear 35, Estimated GFR 123, Est GFR ( Amer) 149, Glucose 165 H D, Calcium 8.6, Magnesium 1.8 I & O for Labs for Last 24 Hours: Intake & Output 10/04/24 10/05/24 10/06/24 10/07/24 23:59 23:59 23:59 23:59 Intake Total 720 / 720 Output Total 0 / 0 0 / 0 Balance 0 / 180 720 / 720 Weight 105 lb 89 lb 14.4 oz Constitutional: Present moderate distress Head: Present normocephalic and atraumatic ENT: Present normal exam, normal oropharynx and mucous membranes moist Neck: Present normal inspection and full ROM Respiratory: Present prolonged expiratory phase, respiratory distress, diminished air movement and able to speak in complete sentences; Absent wheezes Cardiac: Present S1/S2, Tachycardia and radial pulses present GI: Present soft and distention; Absent tenderness or guarding Rectal (female): Present deferred (female): Present deferred Skin: Present intact; Absent cyanosis or jaundice Neuro: Present alert, awake and oriented x 3 Extremities: Present normal inspection; Absent clubbing or cyanosis Psychiatric: Present normal affect and cooperative Meds Home Medications and Allergies Home Medications ?Medication ?Instructions ?Recorded ?Confirmed ?Type escitalopram oxalate 20 mg tablet 20 mg PO DAILY #90 tabs 04/08/22 10/06/24 Rx (Lexapro) New Prescriptions to Start Prescriptions: Allergies Allergy/AdvReac Type Severity Reaction Status Date / Time No Known Allergies Allergy Unverified 07/19/19 12:47 Results Laboratory Findings 10/07/24 06:06 10/07/24 06:06 Abnormal lab findings: Abnormal Labs 10/06/24 10/06/24 10/07/24 17:45 19:41 06:06 WBC 12.6 H RBC 5.63 H Hgb 16.6 H Hct 50.8 H Neut % (Auto) 88.5 H [place] % (Auto) 1.2 L Eos % (Auto) 0.0 L Neut # (Auto) 10.0 H Neutrophils % (Manual) 90 H Lymphocytes % (Manual) 9 L Monocytes % (Manual) 1 L VBG pO2 43.4 H VBG O2 Saturation 82.6 H Sodium 132 L 134 L Creatinine 0.50 L 0.50 L Glucose 111 H 165 H D Entero/Rhino (PCR) Detected A Assessment and Plan *Assessment and plan (1) Acute hypoxemic respiratory failure: Status: Acute Category: Medical Code(s): J96.01 - Acute respiratory failure with hypoxia (2) Acute exacerbation of chronic obstructive pulmonary disease: Status: Acute Category: Medical Code(s): J44.1 - Chronic obstructive pulmonary disease with (acute) exacerbation Plan Ms. Mason is a 69-year-old female seen to reach resident reported history of dementia significant smoking history presented to the ER with worsening respiratory distress cough and pulmonary was called for further evaluation and management. On admission patient is a current smoker, greater than [id number] smoking history, not using any inhalers or oxygen at baseline. Chest x-ray upon admission no dense consolidative/airspace changes. Hyperinflated lungs with flattening diaphragm. Respiratory viral PCR positive for enterorhinovirus Mild neutrophilic predominant leukocytosis upon admission improving. Afebrile. Hemodynamically stable. Venous blood gas upon admission did not show any evidence of hypercarbic respiratory failure. On examination patient appeared to be in moderate respiratory distress. No significant wheezing noted on auscultation. Plan: Continue oxygen supplementation to maintain O2 saturation around 90% and above, continue to wean as tolerated. Steroids can be weaned to prednisone 40 mg daily to complete total of 5-day course Trelegy 100 inhaler along with DuoNebs every 4 as needed
[2024-10-07] MEDS: CITALOPRAM 40MG TABLET 40 MG PO (10:32)
[2024-10-07] MEDS: FLUTICASONE/UMECLIDIN/VILANTER 100/62.5/25MCG INHALER 1 PUFF IH (13:14)
--- NOTE | 2024-10-07 15:32 | PC.NURSE ---
pt started shift on 2L nc. pt had to be advanced to 3L nc for low o2 sat previously in shift. pt is still on 3L nc and o2 sats have remained above 90%. pt has been ambulating to and from bathroom independently. pt only requests to have assistance w/ IV pole when going to restroom. pt has had no complaints this shift. lung sounds revealed slight crackles in both bases and bilat. the lungs sound diminished. call light within reach. no new orders at this time.
[2024-10-07 16:00] VITALS: BP 121/66; PULSE 98; RESP 20; TEMP 37; O2SAT 92
[2024-10-07 16:47] LABS: HIV Combo NEGATIVE (Negative)
--- NOTE | 2024-10-07 18:40 | P.PN_ITS ---
Subjective *Date: 10/07/24 *Time: 22:04 Interval history: reports still feeling short of breath. No N/V/D, chest pain, or confusion. Afebrile overnight. cough not productive at the moment. weaned to 2 L on rounds. Medical Exam Vital signs and Labs for Last 24 Hours: Vital Signs Temp Pulse Pulse Resp BP BP Pulse Ox 10/07/24 16:39 10/07/24 16:00 98.6 F 98 H 20 121/66 92 L 10/07/24 15:00 10/07/24 12:48 10/07/24 11:00 10/07/24 09:00 10/07/24 08:00 10/07/24 08:00 98.1 F 113 H 20 101/56 L 91 L 10/07/24 06:45 10/07/24 06:12 101 H 10/07/24 06:12 101 H 10/07/24 06:12 89 L 10/07/24 05:00 10/07/24 04:00 98.4 F 117 H 16 99/56 L 94 L 10/07/24 03:00 10/07/24 01:00 10/06/24 23:24 106 H 10/06/24 23:24 109 H 10/06/24 23:00 10/06/24 21:00 10/06/24 20:22 104 H 10/06/24 20:22 106 H 10/06/24 20:22 93 L 10/06/24 20:00 80 93 L 10/06/24 19:40 98.2 F 63 18 108/68 L 10/06/24 19:00 119/70 O2 Del Method O2 Flow Rate 10/07/24 16:39 Nasal Cannula 3 10/07/24 16:00 Nasal Cannula 2 10/07/24 15:00 Nasal Cannula 3 10/07/24 12:48 Nasal Cannula 3 10/07/24 11:00 Nasal Cannula 3 10/07/24 09:00 Nasal Cannula 3 10/07/24 08:00 Nasal Cannula 3 10/07/24 08:00 Nasal Cannula 3 10/07/24 06:45 Room Air 10/07/24 06:12 10/07/24 06:12 10/07/24 06:12 Nasal Cannula 2 10/07/24 05:00 Nasal Cannula 2 10/07/24 04:00 Nasal Cannula 2 10/07/24 03:00 Nasal Cannula 2 10/07/24 01:00 Room Air 10/06/24 23:24 10/06/24 23:24 10/06/24 23:00 Nasal Cannula 2 10/06/24 21:00 Nasal Cannula 2 10/06/24 20:22 10/06/24 20:22 10/06/24 20:22 Nasal Cannula 2 10/06/24 20:00 Nasal Cannula 2 10/06/24 19:40 Room Air 10/06/24 19:00 Intake and Output 10/07/24 10/07/24 10/07/24 07:59 15:59 23:59 Intake Total 180 / 1920 1260 / 1920 480 / 1920 Output Total 0 / 0 0 / 0 Balance 180 / 1920 1260 / 1920 480 / 1920 Intake: Intake, Oral Amount 180 / 1920 1260 / 1920 480 / 1920 Output: Output, Urine Amount 0 / 0 0 / 0 Other: Number of Unmeasured Voids 1 1 Weight 40.778 kg Patient Weight 10/07/24 23:59 Weight 40.778 kg Laboratory Results - last 24 hr 10/06/24 17:45: HIV Ag/Ab Combo Qual Negative 10/06/24 19:41: Chlamy pneumoniae PCR Not detected, Adenovirus (PCR) Not detected, B. pertussis DNA (PCR) Not detected, Coronavirus OC43 (PCR) Not detected, Coronavirus HKU1 (PCR) Not detected, Coronavirus 229E (PCR) Not detected, SARS-CoV-2 (PCR) Not detected, Coronavirus NL63 (PCR) Not detected, Human Metapneumovir PCR Not detected, Influenza A (H1) PCR Not detected, Influ A (H1N1/09) PCR Not detected, Influenza A (H3) PCR Not detected, Influenza Type A (PCR) Not detected, Influenza Type B (PCR) Not detected, M. pneumoniae (PCR) Not detected, Parainfluenza 1 (PCR) Not detected, Parainfluenza 2 (PCR) Not detected, Parainfluenza 3 (PCR) Not detected, Parainfluenza 4 (PCR) Not detected, RSV (PCR) Not detected, Entero/Rhino (PCR) Detected A 10/07/24 06:06: WBC 7.1 D, RBC 4.85, Hgb 14.7 D, Hct 44.3, MCV 91.5, MCH 30.3, MCHC 33.1, RDW 12.9, Plt Count 243, MPV 8.0, Neut % (Auto) 88.5 H, Lymph % (Auto) 10.1, [place] % (Auto) 1.2 L, Eos % (Auto) 0.0 L, Baso % (Auto) 0.2, Neut # (Auto) 6.3, Lymph # (Auto) 0.7, [place] # (Auto) 0.1, Eos # (Auto) 0.0, Baso # (Auto) 0.0, Total Counted 100, Neutrophils % (Manual) 90 H, Lymphocytes % (Manual) 9 L, Monocytes % (Manual) 1 L, Platelet Estimate Normal, RBC Morphology Normal, Sodium 134 L, Potassium 3.8, Chloride 106, Carbon Dioxide 25, Anion Gap 6.8, BUN 11, Creatinine 0.50 L, Estimated Creat Clear 35, Estimated GFR 123, Est GFR ( Amer) 149, Glucose 165 H D, Calcium 8.6, Magnesium 1.8 I & O for Labs for Last 24 Hours: Intake & Output 10/04/24 10/05/24 10/06/24 10/07/24 23:59 23:59 23:59 23:59 Intake Total 1919 Output Total 0 / 0 0 / 0 Balance 0 / 180 1919 Weight 47.627 kg 40.778 kg Constitutional: Present no acute distress, cachectic, chronically ill appearing and cooperative Head: Present atraumatic and normocephalic ENT: Present normal exam Respiratory: Present prolonged expiratory phase, rhonchi, wheezes and normal respiratory effort; Absent crackles Cardiac: Present Reg Rate and Rhythm GI: Present soft and normal bowel sounds; Absent distention or tenderness Extremities: Present normal inspection and full ROM; Absent edema Skin: Present intact; Absent erythema Neuro: Present Grossly Intact, alert, awake, oriented x 3 and moves all extremities Assessment and Plan *Assessment and plan (1) Acute hypoxemic respiratory failure: Status: Acute Category: Medical Code(s): J96.01 - Acute respiratory failure with hypoxia (2) Acute exacerbation of chronic obstructive pulmonary disease: Status: Acute Category: Medical Code(s): J44.1 - Chronic obstructive pulmonary disease with (acute) exacerbation (3) Acute bronchitis: Status: Acute Category: Medical Code(s): J20.9 - Acute bronchitis, unspecified 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 Patient has been suffering from shortness of breath productive cough, GARLAND since last night. Portable chest x- ray done in emergency room shows no infiltrates, effusions, or acute lung disease. Continues to require monitoring. Pulmonology evaluated today. Anticipate discharge tomorrow. Problems as listed below: Acute bronchitis likely secondary to undiagnosed COPD: ? Admits to daily smoking, but does not visit doctors. Likely suffering from undiagnosed COPD. -Respiratory panel positive for rhinovirus - Discussed case with pulmonology, continue supplemental oxygen as needed for goal sats above 90%. Continue steroids, wean to prednisone 40 mg daily to complete 5 days. Initiate Trelegy 100 inhaler and DuoNebs every 4 hours as needed. -Continue Doxycycline 100 mg twice daily for 5 days due to COPD exacerbation. Hyponatremia possibly dehydration versus COPD related SIADH: ? Sodium improved to 134, creatinine 0.5, BUN 11. Discontinue IV fluids. Repeat CBC, CMP, magnesium ordered for the morning. Daily smoker: Nicotine patch 21 mg transdermal daily as needed nicotine cravi ngs. PPx Lovenox 40 mg subcutaneous daily CODE STATUS DNI per patient request Regular diet
[2024-10-07 19:48] VITALS: BP 101/60; PULSE 98; RESP 16; TEMP 36.8; O2SAT 92
[2024-10-07] MEDS: ACETAMINOPHEN 325MG TAB 650 MG PO (21:04)
[2024-10-08 04:00] VITALS: BP 120/76; PULSE 83; RESP 16; TEMP 36.6; O2SAT 94; BMI 16.5
--- NOTE | 2024-10-08 05:12 | PC.NURSE ---
Patient alert and oriented x4 this shift. Has maintained o2 stats >90% on 2L NC. Lamb noted on respiratory exam. Tylenol administered per MAR for patients headache once this shift. Patient has ambulated to/from restroom independently this shift. Family has visted off/on this shift. No other needs expressed. Call light within reach.
[2024-10-08 06:13] LABS: HCV Ab Non Reactive (Non Reactive)
[2024-10-08] MEDS: FLUTICASONE/UMECLIDIN/VILANTER 100/62.5/25MCG INHALER 1 PUFF IH (06:24)
[2024-10-08 06:25] VITALS: O2SAT 90
[2024-10-08 07:45] LABS: Basophils # 0.1 K/mm3 (0-0.2); Basophils % 0.4 % (0.1-2.0); Hematocrit 44.6 % (37.0-47.0); Hemoglobin 14.9 g/dL (12.2-16.2); Lymphocytes # 2.7 K/mm3 (0.7-4.5); Mean Corpuscular HGB Conc 33.3 g/dL (31.8-35.4); Mean Corpuscular Volume 90.1 fl (81-99); Mean Platelet Volume 8.1 fl (7.4-10.4); Monocytes # 1.5 K/mm3 (0.1-1.0); Monocytes % 6.2 % (1.7-9.3); Neutrophils # 20.2 K/mm3 (1.8-7.8); Neutrophils % 82.4 % (37.0-80.0); Platelet Count 256 K/mm3 (142-424); Red Blood Count 4.95 M/mm3 (4.20-5.40); Red Cell Distribution Width 12.9 % (11.5-17.5); White Blood Count 24.5 K/mm3 (4.8-10.8)
[2024-10-08 07:54] LABS: MANUAL DIFFERENTIAL MANUAL DIFFERENTIAL (MANUAL DIFF)
--- NOTE | 2024-10-08 07:55 | P.DS_ITS ---
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 Patient has been suffering from shortness of breath productive cough, GARLAND since last night. Also admits to hot/cold spells occurring since Thursday. Patient had 1 episode of diarrhea this afternoon. States she smokes daily, but has never been diagnosed with COPD. Also denies black lung, asthma, restrictive or obstructive lung disease history. 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 Patient COVID-negative in emergency room. Denies recent travel, chest pain, lower extremity swelling, blurry vision, headaches, abdominal pain, ataxia. Patient also denies history of MIs, CVA, or obstructive sleep apnea. Patient's present with patient emergency room and collaborates patient's story. Portable chest x-ray done in emergency room shows no infiltrates, effu sions, or acute lung disease. 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 Patient has been suffering from shortness of breath productive cough, GAR[place] since last night. Portable chest x- ray done in emergency room shows no infiltrates, effusions, or acute lung disease. Continues to require monitoring. Pulmonology evaluated during admission. Patient showing good improvement. Continues to require oxygen at discharge. Stable to discharge home however to complete antibiotics and steroids. Problems addressed as follows: Acute bronchitis likely secondary to undiagnosed COPD: Daily smoker ? Admits to daily smoking, but does not visit doctors. Likely suffering from undiagnosed COPD. Pulmonology was consulted, will follow as an outpatient. Recommended continuing steroids, initiating Trelegy, follow-up as an outpatient for further evaluation with PFTs. On admission patient's respiratory panel positive for rhinovirus. Continued to require oxygen on day of discharge. Room air saturation at rest of 88%. Will continue 2 L oxygen and wean as tolerated at home. 5 days of prednisone and doxycycline. Initiate Trelegy 100 inhaler. Provided with albuterol inhaler and spacer prior to discharge to take home with her. Overall doing better. Counseled on smoking cessation. Patches not sent at this time due to patient preference. Hyponatremia possibly dehydration versus COPD related SIADH: ? Sodium improved to 134, creatinine 0.5, BUN 11 with fluid resuscitation. Remained stable during admission. Likely from dehydration. Exam Data for Last 24 hours Vital signs and Labs for Last 24 Hours: Temp Pulse Resp BP Pulse Ox O2 Del Method O2 Flow Rate 97.8 F 83 16 120/76 90 L Nasal Cannula 2 10/08/24 04:00 10/08/24 04:00 10/08/24 04:00 10/08/24 04:00 10/08/24 06:25 10/08/24 06:50 10/08/24 06:50 Laboratory Results - last 24 hr 10/06/24 17:45: Hepatitis C Antibody Non reactive, HIV Ag/Ab Combo Qual Negative 10/07/24 06:06: Hgb 14.7 D, Total Counted 100, Neutrophils % (Manual) 90 H, Lymphocytes % (Manual) 9 L, Monocytes % (Manual) 1 L, Platelet Estimate Normal, RBC Morphology Normal 10/08/24 07:16: WBC 24.5 H* D, RBC 4.95, Hgb 14.9, Hct 44.6, MCV 90.1, MCH 30.0, MCHC 33.3, RDW 12.9, Plt Count 256, MPV 8.1, Neut % (Auto) 82.4 H, Lymph % (Auto) 11.0, [place] % (Auto) 6.2, Eos % (Auto) 0.0 L, Baso % (Auto) 0.4, Neut # (Auto) 20.2 H, Lymph # (Auto) 2.7, [place] # (Auto) 1.5 H, Eos # (Auto) 0.0, Baso # (Auto) 0.1 I & O for Last 24 hours: Intake & Output 10/05/24 10/06/24 10/07/24 10/08/24 23:59 23:59 23:59 23:59 Intake Total 1919 Output Total 0 / 0 0 / 0 0 / 0 Balance 0 / 180 1919 0 / 0 Weight 47.627 kg 40.778 kg 40.776 kg Constitutional Constitutional: no acute distress, thin, cachectic, chronically ill appearing and cooperative *Routine HEENT Exam Head: Present normocephalic and atraumatic Eye: Present EOMI and PERRL ENT: Present mucous membranes moist *Routine Neck Exam Neck: Present supple; Absent lymphadenopathy *Routine Respiratory Exam Respiratory: Present prolonged expiratory phase and wheezes; Absent rhonchi or crackles *Routine Cardiovascular Exam Cardiovascular: Present RRR *Routine Abdominal Exam Abdominal: Present soft and normoactive bowel sounds; Absent tenderness *Routine Rectal Exam Patient deferred: visual exam *Routine Exam Patient deferred: external exam *Routine Extremities Exam Extremities: Absent cyanosis, clubbing or edema *Routine Skin Exam Skin: Present warm; Absent rash *Routine Neurological Exam Neurological: Present alert, oriented X3 and moving all extremities; Absent altered mental status Results Data Completed and Pending Labs on day of discharge: Labs from last 24 hours 10/08/24 10/07/24 10/06/24 07:16 06:06 17:45 WBC 24.5 H* D RBC 4.95 Hgb 14.9 14.7 D Hct 44.6 MCV 90.1 MCH 30.0 MCHC 33.3 RDW 12.9 Plt Count 256 MPV 8.1 Neut % (Auto) 82.4 H Lymph % (Auto) 11.0 [place] % (Auto) 6.2 Eos % (Auto) 0.0 L Baso % (Auto) 0.4 Neut # (Auto) 20.2 H Lymph # (Auto) 2.7 [place] # (Auto) 1.5 H Eos # (Auto) 0.0 Baso # (Auto) 0.1 Total Counted 100 Neutrophils % (Manual) 90 H Lymphocytes % (Manual) 9 L Monocytes % (Manual) 1 L Platelet Estimate Normal RBC Morphology Normal Hepatitis C Antibody Non reactive HIV Ag/Ab Combo Qual Negative DS: Diagnosis Discharge Diagnosis (1) Acute hypoxemic respiratory failure: Status: Acute Code(s): J96.01 - Acute respiratory failure with hypoxia (2) Acute exacerbation of chronic obstructive pulmonary disease: Status: Acute Code(s): J44.1 - Chronic obstructive pulmonary disease with (acute) exacerbation (3) Acute bronchitis: Status: Acute Code(s): J20.9 - Acute bronchitis, unspecified Meds Home Medications and Allergies Home Medications ?Medication ?Instructions ?Recorded ?Confirmed ?Type escitalopram oxalate 20 mg tablet 20 mg PO DAILY #90 tabs 04/08/22 10/06/24 Rx (Lexapro) albuterol sulfate 90 mcg/actuation 2 puff inhalation Q6HP PRN 10/08/24 Rx aerosol inhaler (Ventolin HFA) Shortness Of Breath #8.5 grams doxycycline hyclate 100 mg tablet 100 mg PO BID 3 days #6 tabs 10/08/24 Rx fluticasone fur. 100 mcg-umeclid 1 inh inhalation DAILY 30 days #60 10/08/24 Rx 62.5 mcg-vilant 25 mcg ea inhalat.powder (Trelegy Ellipta) prednisone 20 mg tablet 40 mg (2 x 20 mg) PO DAILY 3 days 10/08/24 Rx #6 tabs New Prescriptions to Start Prescriptions: albuterol sulfate [Ventolin HFA] Jaydon Canseco doxycycline hyclate Jaydon Canseco [id number] [Trelegy Ellipta] Harleen,Jaydon prednisone Jaydon Canseco Allergies Allergy/AdvReac Type Severity Reaction Status Date / Time No Known Allergies Allergy Unverified 07/19/19 12:47 Discharge Plan Disposition Patient Disposition: Home, Self-Care Condition: Fair Discharge Order Discharge Orders: Discharge Order (Routine); Ordered 10/08/24 Ordered By: Jaydon Canseco Follow up Plan Follow up with: Osei Sims MD [Physician] - Enter time for follow up (The office will call you with a follow up appt. ) Prescriptions/Medication Reconciliation: New Trelegy Ellipta 100-62.5-25 mcg Blister With Device 1 inh inhalation DAILY 30 Days Qty: 60 0RF prednisone 20 mg Tablet 40 mg PO DAILY 3 Days Qty: 6 0RF albuterol sulfate [Ventolin HFA] 90 mcg/actuation Hfa Aerosol Inhaler 2 puff inhalation Q6HP PRN (Reason: Shortness Of Breath) Qty: 8.5 0RF doxycycline hyclate 100 mg Tablet 100 mg PO BID 3 Days Qty: 6 0RF Continued escitalopram oxalate [Lexapro] 20 mg tablet 20 mg PO DAILY Qty: 90 2RF Problem Reconciliation Problems Reviewed?: Yes Patient Discharge Instructions ACTIVITY: Continue current activity DIET: continue same diet Patient Instructions: DI for Chronic Obstructive Pulmonary Disease Print Language: Hungarian Providers Primary Care Provider: Provider,Referral Admit Provider: Indra Lynn Attending Provider: Indra Lynn
[2024-10-08 08:00] VITALS: BP 109/59; PULSE 92; RESP 17; TEMP 36.7; O2SAT 88
[2024-10-08 08:04] LABS: Chloride 107 mmol/L (98-107); Potassium 3.9 mmoL/L (3.5-5.1); Sodium 138 mmol/L (136-145)
[2024-10-08] MEDS: DOXYCYCLINE HYCL 100 MG TABLET PO (08:05)
[2024-10-08] MEDS: CITALOPRAM 40MG TABLET 40 MG PO (08:05)
[2024-10-08] MEDS: ENOXAPARIN 40MG/0.4ML SYRINGE 40 MG SUBCUT (08:05)
[2024-10-08 08:06] LABS: Blood Urea Nitrogen 15 mg/dl (7-17); Creatinine Clearance Estimated 35 mL/min (50-200); Estimated Glomerular Filt Rate 83 ml/min (>60); GFR (African American) 101 ML/MIN (>60)
[2024-10-08 08:07] LABS: Anion Gap 7.9 mEq/L (5-15); Calcium 8.8 mg/dl (8.4-10.2); Carbon Dioxide 27 mmol/L (22.0-30.0); Glucose 91 mg/dl (74-100); Magnesium 1.9 mg/dl (1.6-2.3)
[2024-10-08] MEDS: predniSONE 20MG TAB 40 MG PO (08:08)
--- NOTE | 2024-10-08 09:45 | PC.NURSE ---
pt or sat 88% at rest on room air
--- NOTE | 2024-10-08 10:15 | PC.NURSE ---
pt o2 sat 88% at rest on room air.
[2024-10-08 14:05] LABS: Platelet Estimate Normal; RBC Morphology Normal
[2024-10-08 14:06] LABS: Lymphocytes % 11 % (10-50); Monocytes % 4 % (2-9); Neutrophils % 85 % (42-76); Total Cells Counted 100
--- NOTE | 2024-10-10 10:14 | SW/DCPLANNER ---
Spoke with patient on the phone. Patient stated that she is doing well. Patient stated that she has called Dr Sims's office and waiting on phone call back for appointment. I called Dr Sims's office and made patient an appointment. Patient asked about an Dr excshantel and i told patient that she needs to go to 2nd floor and see the charge nurse and they will give her an excuse. Patient stated she has no other concerns or questions. Indu Gutiérrez
== END 2024-10-08 12:18 | disposition home or self-care (01) | DRG 189 ==
LOC: ER 18:54 → 2ND 22:03
PROVIDERS: Physician Assistant; Admitting Provider Internal Medicine; Emergency Provider Student in an Organized Health Care Education/Training Program; Visit Provider Internal Medicine
DX: J96.01 Acute respiratory failure with hypoxia (principal); J44.0 Chronic obstructive pulmonary disease with (acute) lower respiratory infection; J44.1 Chronic obstructive pulmonary disease with (acute) exacerbation; E22.2 Syndrome of inappropriate secretion of antidiuretic hormone; J20.9 Acute bronchitis, unspecified; F03.90 Unspecified dementia, unspecified severity, without behavioral disturbance, psychotic disturbance, mood disturbance, and anxiety; E86.0 Dehydration; F17.200 Nicotine dependence, unspecified, uncomplicated
CPT/HCPCS: 36415; 71046; 80048; 80053; 82803; 83735; 85007; 85025; 86803; 87389; 87633; 87636; 93005; 94640; 94761; 99285; J1100; J1650; J2919; J7030; J7620

== ENCOUNTER 2025-08-22 08:39 | Inpatient (IN) | payer BC, MEDICARE, SELFPAY ==
[2025-08-22] VITALS (12 sets, daily range): BP systolic 87–130; BP diastolic 50–89; PULSE 98–142; RESP 14–32; TEMP 36.9–37.1; O2SAT 72–96; BMI 18.1; BMI 17.7
--- NOTE | 2025-08-22 08:48 | ECG_ITS ---
APPROVED REPORT Exam: Resting ECG HR:120 bpm ECG Measurements Heart Rate 120 AXES [place] 157 P 86 QRSd 70 QRS 72 QT 303 T 80 QTc 374 Conclusion SINUS TACHYCARDIA INDETERMINATE AXIS ABNORMAL RHYTHM ECG Electronically signed by : NUVIA LOMBARDI, 08/22/2025 16:26:44
[2025-08-22 08:59] LABS: Coronavirus 19, PCR Not Detected (NotDetected); Influenza A, PCR Not Detected (NotDetected); Influenza B, PCR Not Detected (NotDetected)
--- NOTE | 2025-08-22 09:05 | XR_ITS ---
FINAL REPORT CLINICAL HISTORY: cough COMPARISON: 10/06/2024 FINDINGS: SINGLE VIEW CHEST The heart is normal in size. The mediastinum is unremarkable. There are mild chronic changes at the bases. There is no pneumothorax. There is 45 degree thoracic scoliosis convex to the right. IMPRESSION: No acute process. Reviewed, Interpreted and Dictated by Wilver Oquendo MD Transcribed by Nancy Sylvester Authenticated and [facility]
--- NOTE | 2025-08-22 09:08 | ED_ITS ---
Discharge Plan Disposition Patient Disposition: Admitted Prescriptions Prescriptions: No Action albuterol sulfate [Ventolin HFA] 90 mcg/actuation HFA aerosol inhaler 2 puff inhalation Q6HP PRN (Reason: Shortness Of Breath) Qty: 8.5 2RF escitalopram oxalate [Lexapro] 20 mg tablet 20 mg PO DAILY Qty: 90 2RF Trelegy Ellipta 100-62.5-25 mcg Blister With Device 1 inh inhalation DAILY 30 Days Qty: 60 0RF prednisone 20 mg Tablet 40 mg PO DAILY 3 Days Qty: 6 0RF doxycycline hyclate 100 mg Tablet 100 mg PO BID 3 Days Qty: 6 0RF Referrals Follow up/Referrals: Provider,Referral, MD [Primary Care Provider, Medical] - See instructions Clinical Impressions Clinical Impression: Acute hypoxemic respiratory failure, Chronic lung disease Print Language Print Language: Divehi Discharge ED Provider: London Coker General Chief Complaint: Shortness of Breath/Dyspnea Stated Complaint: SOA, Pulse 130, o2 69 Time Seen by Provider: 08/22/25 08:51 Mode of Arrival: Ambulatory Source of Information: Patient and Spouse Description of Symptoms (Recalled from ER Triage Doc. by RN): pt has been increasingly short of air for a few weeks but is not at the point that she is really struggling. pt cyanotic around her lips. smokes daily. 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 coughing up clear. History of Present Illness HPI narrative: Patient is a 70-year-old female with past medical history of pulmonary disease but no definitive diagnosis of COPD reportedly has rescue inhaler at home chronic smoker who presents emergency department for evaluation of shortness of breath and cough. Patient has felt short of air for the last couple of weeks however over the last 72 hours has gotten particularly worse and presents here for continued evaluation with her . In triage patient was cyanotic placed on 4 L nasal cannula given her tachypnea and oxygen saturation of 72% as well as associated tachycardia. She has used her inhaler this morning which has not really improved her symptoms. She presents here for continued evaluation. No chest pain. No abdominal pain. No other acute complaints at this time. Please note that above description of symptoms, in this electronic medical record under categorization of recalled from ER triage doctor by RN are reflective of an initial nursing assessment, however, is not reflective of my full history and physical exam that was personally taken and clarified. Consequentially, this preceding description of symptoms, which may include the patient's categorized chief complaint in the EMR, do not reflect my personal clinical impression, and the ultimate description of history of present illness and patient stated complaints should be deferred to this section of the note. Unless stated otherwise or congruent with this section of the note, additional signs, symptoms, or incongruence should be interpreted as inaccurate with my clinical impression. Related Data Previous Rx's ?Medication ?Instructions ?Recorded doxycycline hyclate 100 mg tablet 100 mg PO BID 3 days #6 tabs 10/08/24 fluticasone fur. 100 mcg-umeclid 1 inh inhalation REBEL Y 30 days #60 10/08/24 62.5 mcg-vilant 25 mcg ea inhalat.powder (Trelegy Ellipta) prednisone 20 mg tablet 40 mg (2 x 20 mg) PO DAILY 3 days 10/08/24 #6 tabs albuterol sulfate 90 mcg/actuation 2 puff inhalation Q 6HP PRN 04/21/25 aerosol inhaler (Ventolin HFA) Shortness Of Breath #8. 5 grams escitalopram oxalate 20 mg tablet 20 mg PO DAILY #90 t abs 04/21/25 (Lexapro) Allergies Allergy/AdvReac Type Severity Reaction Status Date / Time No Known Allergies Allergy Unverified 07/19/19 12:47 [facility] Disclaimer: The information contained in this section may have been updated after the patient was seen, as this information can be updated by other users. Medical History (Updated 08/22/25 @ 10:29 by London Coker MD) Laceration of wrist, right COPD (chronic obstructive pulmonary disease) Surgical History (Updated 10/06/24 @ 20:06 by Katelyn Shaikh RN) History of tubal ligation Family History (Updated 10/06/24 @ 20:06 by Katelyn Shaikh RN) Other COPD (chronic obstructive pulmonary disease) Cancer Social History (Updated 10/06/24 @ 20:06 by Katelyn Shaikh RN) Smoking Status: Current every day smoker alcohol intake: never current occupational status: employed and other Travel in the last 8 weeks?: None Have you lived/traveled outside US in past 30 days?: No Contact w/someone who lives/traveled outside US past 30 days?: No Exposure to someone with infectious disease in past 14 days?: No Do you have a fever (greater than 100.4 F or 38 C)?: No Have you tested positive for COVID-19?: No Exposed to someone with COVID-19 in past 14 days?: No Do you have a sore throat?: No Do you have a cough?: No Do you have any weakness?: No Do you have any diarrhea?: No Are you experiencing any unusual bleeding?: No Do you have any muscle aches/pain?: No Do you have any abdominal pain?: No Are you experiencing loss of taste or smell?: No Other Medical History Have you received the Flu Vaccine for this season: No Have you received the Pneumonia Vaccine: No ROS Obtained: Yes Systems reviewed as appropriate & no additional complaints except as documented Physical Exam General General appearance: alert and in distress Head Head exam: atraumatic and normocephalic Eye Eye exam: Present PERRL and EOMI ENT ENT exam: Present mucous membranes moist Neck Neck exam: Present normal inspection Chest Chest inspection: Present normal inspection and symmetric chest wall rise Respiratory Respiratory exam: Present respiratory distress, wheezes (Diffuse biphasic wheezes), accessory muscle use and prolonged expiratory phase; Absent normal lung sounds bilaterally Cardiovascular Cardiovascular exam: Present normal rhythm and tachycardia Abdominal Exam Abdominal exam: Present soft; Absent tenderness Extremities Exam Extremities exam: Present normal inspection Neurological Exam Neurological exam: Present alert and CN II-XII intact; Absent motor sensory deficit Psychiatric Psychiatric exam: Present normal affect Skin Skin exam: Present warm and dry HEART Score HEART Score HEART Score assessment performed?: Yes History (anamnesis): Slightly suspicious ECG: Non-specific disturbance Age: >65 years Risk factors: 1-2 risk factors Troponin: </= normal limit HEART Score: 4 Critical Care Critical Care Time Critical Care Time: Yes Attestation: On 08/22/25, the high probability of a clinically significant, sudden or life threatening deterioration of the following system(s) required my full and direct attention, intervention and personal management. The time I documented below is in addition to time spent performing reported procedures but includes the following listed in this critical care notation. Total Time Total Critical Care Time: 35 Medical Decision Making Js Inquiry Pt receiving controlled substance: No Vital Signs Vital Signs: 08/22/25 08:49 08/22/25 09:00 Temperature 98.6 F Temperature Source Oral Pulse Rate 117 H Pulse Rate [Right] 142 H Respiratory Rate 32 H 14 Blood Pressure 117/75 Blood Pressure [Right Arm] 130/89 Blood Pressure Mean [Right Arm] 102 02 Sat by Pulse Oximetry 72 L 96 Oxygen Delivery Method Room Air Room Air Lab Data Labs: Lab Results 08/22/25 08:55: WBC 10.3, RBC 5.71 H, Hgb 16.7 H, Hct 51.8 H, MCV 90.7, MCH 29.2, MCHC 32.2, RDW 13.1, Plt Count 308, MPV 10.2, Neut % (Auto) 70.5, Lymph % (Auto) 18.1, [place] % (Auto) 6.8, Eos % (Auto) 3.3, Baso % (Auto) 1.0, Neut # (Auto) 7.3, Lymph # (Auto) 1.9, [place] # (Auto) 0.7, Eos # (Auto) 0.3, Baso # (Auto) 0.1, D-Dimer 0.60 H, Sodium 137, Potassium 4.0, Chloride 100, Carbon Dioxide 28, Anion Gap 13.0, BUN 9, Creatinine 0.60, Estimated Creat Clear 37, Estimated GFR 99, Est GFR ( Amer) 120, Glucose 122 H, Calcium 9.2, Total Bilirubin 0.8, AST 31, ALT 18, Alkaline Phosphatase 101, Troponin I < 0.01, NT-Pro-B Natriuret Pep 79.1, Total Protein 7.0, Albumin 3.7, Globulin 3.3 H, Albumin/Globulin Ratio 1.1, SARS-CoV-2 (PCR) Not detected, Influenza A Untype (PCR) Not detected, Influenza Type B (PCR) Not detected 08/22/25 09:05: VBG pH 7.32, VBG pCO2 52.5 H, VBG pO2 39.3, VBG HCO3 26.5, VBG Total CO2 28.1 H, VBG O2 Saturation 76.4 H, VBG Base Excess 0.4, VBG Lactic Acid 1.4 08/22/25 08:55 08/22/25 08:55 Response Orders (Tests/Meds): ED MEDICATIONS Discontinued Medications Generic Name Dose Route Start Last Admin Trade Name Freq PRN Reason Stop Dose Admin Albuterol/Ipratropium 9 ml 08/22/25 09:05 08/22/25 09:48 Ipratropium/Albuterol 3 Ml Neb IH 08/22/25 09:06 9 ml ONCE ONE Administration Magnesium Sulfate 2 gm in 50 mls @ 50 mls/hr 08/22/25 09:05 08/22/25 09:59 Magnesium Sulfate 2gm/50ml Premix IV 08/22/25 10:04 50 mls/hr ONCE ONE Administration Azithromycin 500 mg/ Sodium 250 mls @ 250 mls/hr 08/22/25 09:07 08/22/25 10:21 Chloride IV 08/22/25 09:08 250 mls/hr ONCE ONE Administration Ceftriaxone Sodium 1 gm/ 50 mls @ 100 mls/hr 08/22/25 09:07 08/22/25 10:18 Sodium Chloride IV 08/22/25 09:36 Infused ONCE ONE Infusion Methylprednisolone Sodium Succinate 125 mg 08/22/25 09:08 08/22/25 09:43 Methylprednisolone Sod Succ 125mg Vial IV 08/22/25 09:09 125 mg ONCE ONE Administration ORDERS Category Date Time Status CXR --portable [XR chest portable] Stat Exams 08/22/25 09:05 Taken BNP [NT Pro Brain Natriuretic Pep.] Stat Lab 08/22/25 08:55 Completed CBC w/Auto Diff [Complete Blood Count Auto Diff] Stat Lab 08/22/25 08:55 Completed CMP [Comprehensive Metabolic Panel] Stat Lab 08/22/25 08:55 Completed D-Dimer Stat Lab 08/22/25 08:55 Completed Full Resp Panel w/COVID ([facility]) Routine Lab 08/22/25 09:26 Ordered Rapid PCR Covid and Flu A/B Stat Lab 08/22/25 08:55 Completed Trop I [Troponin I] Stat Lab 08/22/25 08:55 Completed Troponin I Q3H Lab 08/22/25 12:15 Ordered Troponin I Q3H Lab 08/22/25 15:15 Ordered Blood Culture Stat Micro 08/22/25 09:25 Received VBG [Venous Blood Gas] Stat RT 08/22/25 09:01 Ordered VBG [Venous Blood Gas] Stat RT 08/22/25 09:05 Completed EKG Request [ECG Request] Stat Y 08/22/25 09:05 Ordered ECG Data Tracing #1: ECG Narrative: Independently inter by me rate is 120, rhythm is regular, axis is borderline leftward deviated, no ST elevation in anatomical contiguous leads, sinus tachycardia, QTc 374. MDM Narrative Medical Decision Narrative: In summary patient is a 70-year-old female past medical history described above presents emergency department for evaluation of shortness of breath and cough. Patient is hemodynamically stable, hypoxic and tachypneic upon arrival biphasic wheezes. My concern for pulmonary pathology is high. Patient was placed on 4 L oxygen with increase in oxygen saturation from the low 70s to the mid 90s and partial resolution of her tachypnea. Differential includes COPD exacerbation, atypical ACS, pulmonary embolism, pneumonia, among others. Workup we conducted with hematologic labs chest x-ray EKG troponin D-dimer. Initial inventions include DuoNebs x 3, methylprednisolone, magnesium sulfate, crystalloid bolus. Full sepsis bolus fluids were considered but will be deferred given that patient appears largely euvolemic and I think some of her tachycardia is attributed to her hypoxia and beta agonist used at home prior to arrival. Initial workup reviewed by me hematologic labs are largely nonactionable no significant leukocytosis no transfusable anemia pulmonary embolism excluded per years criteria with D-dimer 0.6 chronic hypercarbia with compensated acid-base status no critical electrolyte abnormality or BENJI initial troponin undetectably low rapid viral swab negative. Full swab pending. Chest x-ray informally interpreted by me flattening of the diaphragm with interstitial opacities which may be consistent with chronic lung disease versus atypical pneumonia for which patient is already covered. Given acute hypoxic respiratory failure patient requires admission the case discussed with hospital medicine regarding management they admit the patient to their service for continued evaluation at this time.
[2025-08-22 09:11] LABS: Lactate Venous 1.4 mmol/L (0.4-2.0); VBG HCO3 26.5 mmol/L (23-30); VBG PH 7.32 mmol/L (7.31-7.41); VBG PO2 39.3 mmol/L (28-40)
[2025-08-22 09:15] LABS: VBG PCO2 52.5 mmol/L (35-51)
[2025-08-22 09:19] LABS: Alanine Aminotransferase 18 U/L (12-78); Albumin Level 3.7 g/dl (3.5-5.0); Albumin/Globulin Ratio 1.1 (1.1-1.8); Alkaline Phosphatase 101 U/L (38-126); Anion Gap 13.0 mEq/L (5-15); Aspartate Amino Transferase 31 U/L (14-36); Bilirubin,Total 0.8 mg/dl (0.2-1.3); Blood Urea Nitrogen 9 mg/dl (7-17); Calcium 9.2 mg/dl (8.4-10.2); Carbon Dioxide 28 mmol/L (22.0-30.0); Chloride 100 mmol/L (98-107); Creatinine Clearance Estimated 37 mL/min (50-200); Creatinine,Serum 0.60 mg/dl (0.52-1.04); Estimated Glomerular Filt Rate 99 ml/min (>60); GFR (African American) 120 ML/MIN (>60); Globulin 3.3 g/dL (1.3-3.2); Glucose 122 mg/dl (74-100); Potassium 4.0 mmoL/L (3.5-5.1); Sodium 137 mmol/L (136-145); Total Protein,Serum 7.0 g/dl (6.3-8.2)
[2025-08-22 09:20] LABS: Hematocrit 51.8 % (37.0-47.0); Hemoglobin 16.7 g/dL (12.2-16.2); Immature Granulocytes % 0.3 %; Mean Corpuscular HGB Conc 32.2 g/dL (31.8-35.4); Mean Corpuscular Hemoglobin 29.2 pg (27.0-31.2); Mean Corpuscular Volume 90.7 fl (81-99); Nucleated Red Blood Cells % 0 %; Platelet Count 308 K/mm3 (142-424); Red Blood Count 5.71 M/mm3 (4.20-5.40); Red Cell Distribution Width-SD 43.8 fL; White Blood Count 10.3 K/mm3 (4.8-10.8)
[2025-08-22 09:24] LABS: D-Dimer 0.60 ug/mL (0.0-0.5)
[2025-08-22 09:32] LABS: NT Pro Brain Natriuretic Pep. 79.1 pg/mL (0-125)
[2025-08-22 09:40] LABS: Troponin I < 0.01 ng/ml (0.00-0.034)
[2025-08-22] MEDS: METHYLPREDNISOLONE SOD SUCC 125MG VIAL 125 MG IV (09:43)
[2025-08-22] MEDS: CEFTRIAXONE 1 GM 1 GM in 0.9 % SODIUM CHLORIDE 50 ML IV (09:47)
[2025-08-22] MEDS: IPRATROPIUM/ALBUTEROL 3 ML NEB 9 ML IH (09:48)
[2025-08-22] MEDS: MAGNESIUM SULFATE IN WATER 2 GM/50 ML PIGGYBACK IV (09:59)
[2025-08-22] MEDS: AZITHROMYCIN 500 MG in 0.9 % SODIUM CHLORIDE 250 ML 250 MG IV (10:21)
--- NOTE | 2025-08-22 10:32 | HMH.PHAINT1 ---
Pharmacy Intervention Comments: MEDICATION RECONCILIATION COMPLETED ON PATIENT USING EXTERNAL FILL HISTORY FROM PHARMACY. -NESTOR MISTRY, ABDULLAHID
--- NOTE | 2025-08-22 10:50 | PC.NURSE ---
call made to roundhouse supervisor for bed placement
[2025-08-22] MEDS: ALBUTEROL 0.083% 2.5 MG/3 ML NEB 20 MG IH (10:56)
--- NOTE | 2025-08-22 11:17 | P.HP_ITS ---
<Statement entered by Aiden Dior MD - 08/27/25 15:35> Agree with plan of care as outlined by the [employer]. Continue treatment of suspected COPD exacerbation as below. History of Present Illness *Admission Date: 08/22/25 *Reason for visit:: shortness of breath *History of present illness: Ms. Mason is a 70-year-old female who presented to the emergency department today due to shortness of breath. Patient has a primary medical history of COPD exacerbation, chronic lung disease, and depression. She presented with increasing shortness of breath for the last few weeks, worsening over the past 72 hours. Patient initially was tachypneic, tachycardic, and oxygen saturation was noted at 72%. She states she did use her rescue inhaler multiple times without improvement. She denies chest pain, abdominal pain, fevers, chills, nausea, vomiting, diarrhea. She states that she does not have a PCP and has been hospitalized in the past for COPD exacerbation but has not followed up with a inside account representative. Patient was placed on 4 L nasal cannula and oxygen saturation of greater than 90% was achieved. She was given magnesium, DuoNebs x 3, crystalloid bolus, and IV methylprednisolone. Chest x-ray showed flattening of the diaphragm with interstitial opacities consistent with chronic lung disease versus atypical pneumonia. No leukocytosis, no anemia, no electrolyte abnormalities, normal kidney function noted. [facility] Disclaimer: The information contained in this section may have been updated after the patient was seen, as this information can be updated by other users. Medical History (Updated 08/22/25 @ 14:26 by Patito Mcgovern APRN) Laceration of wrist, right COPD (chronic obstructive pulmonary disease) Surgical History History of tubal ligation Family History Other COPD (chronic obstructive pulmonary disease) Cancer Social History (Updated 08/22/25 @ 12:26 by Anna Tomas, RN) Smoking Status: Current every day smoker alcohol intake: never current occupational status: employed and other Travel in the last 8 weeks?: None Have you lived/traveled outside US in past 30 days?: No Contact w/someone who lives/traveled outside US past 30 days?: No Exposure to someone with infectious disease in past 14 days?: No Do you have a fever (greater than 100.4 F or 38 C)?: No Have you tested positive for COVID-19?: No Exposed to someone with COVID-19 in past 14 days?: No Do you have a sore throat?: No Do you have a cough?: No Do you have any weakness?: No Are you experiencing any nausea/vomitting?: No Do you have any diarrhea?: No Are you experiencing any unusual bleeding?: No Do you have any muscle aches/pain?: No Do you have any abdominal pain?: No Are you experiencing loss of taste or smell?: No Other Medical History Have you received the Flu Vaccine for this season: No Have you received the Pneumonia Vaccine: No Review of Systems Constitutional Constitutional: Denies fatigue, Denies fever(s) and Reports poor appetite *Cardiovascular Cardiovascular: Denies chest pain, Reports dyspnea, Denies leg edema and Reports rapid heart rate *Respiratory Respiratory: Reports cough and Reports dyspnea *Gastrointestinal Gastrointestinal: Denies loose stools, Denies nausea and Denies vomiting *Genitourinary Genitourinary: Denies difficulty voiding and Denies dysuria Endocrine Endocrine: Denies fatigue Meds Home Medications and Allergies Home Medications ?Medication ?Instructions ?Recorded ?Confirmed ?Type albuterol sulfate 90 mcg/actuation 2 puff inhalation Q 6HP PRN 04/21/25 08/22/25 Rx aerosol inhaler (Ventolin HFA) Shortness Of Breath #8. 5 grams escitalopram oxalate 20 mg tablet 20 mg PO DAILY #90 t abs 04/21/25 08/22/25 Rx (Lexapro) New Prescriptions to Start Prescriptions: Allergies Allergy/AdvReac Type Severity Reaction Status Date / Time No Known Allergies Allergy Unverified 07/19/19 12:47 Exam Data for Last 24 hours Vital signs and Labs for Last 24 Hours: Temp Pulse Resp BP Pulse Ox O2 Del Method 98.6 F 112 H 14 117/75 96 Room Air 08/22/25 08:49 08/22/25 10:57 08/22/25 09:00 08/22/25 09:00 08/22/25 09:00 08/22/25 09:00 Laboratory Results - last 24 hr 08/22/25 08:55: WBC 10.3, RBC 5.71 H, Hgb 16.7 H, Hct 51.8 H, MCV 90.7, MCH 29 .2, MCHC 32.2, RDW 13.1, Plt Count 308, MPV 10.2, Neut % (Auto) 70.5, Lymph % (Auto) 18.1, [place] % (Auto) 6.8, Eos % (Auto) 3.3, Baso % (Auto) 1.0, Neut # (Auto) 7.3, Lymph # (Auto) 1.9, [place] # (Auto) 0.7, Eos # (Auto) 0.3, Baso # (Auto) 0.1, D-Dimer 0.60 H, Sodium 137, Potassium 4.0, Chloride 100, Carbon Dioxide 28, Anion Gap 13.0, BUN 9, Creatinine 0.60, Estimated Creat Clear 37, Estimated GFR 99, Est GFR ( Amer) 120, Glucose 122 H, Calcium 9.2, Total Bilirubin 0.8, AST 31, ALT 18, Alkaline Phosphatase 101, Troponin I < 0.01, NT-Pro-B Natriuret Pep 79.1, Total Protein 7.0, Albumin 3.7, Globulin 3.3 H, Albumin/Globulin Ratio 1.1, SARS-CoV-2 (PCR) Not detected, Influenza A Untype (PCR) Not detected, Influenza Type B (PCR) Not detected 08/22/25 09:05: VBG pH 7.32, VBG pCO2 52.5 H, VBG pO2 39.3, VBG HCO3 26.5, VBG Total CO2 28.1 H, VBG O2 Saturation 76.4 H, VBG Base Excess 0.4, VBG Lactic Acid 1.4 I & O for Last 24 hours: Intake & Output 08/19/25 08/20/25 08/21/25 08/22/25 23:59 23:59 23:59 23:59 Intake Total 50 / 50 Balance 50 / 50 Weight 43.545 kg Constitutional Constitutional: no acute distress, thin and cooperative *Routine HEENT Exam Head: Present normocephalic Eye: Present EOMI and normal accommodation ENT: Present mucous membranes dry *Routine Neck Exam Neck: Present supple and full ROM *Routine Respiratory Exam Respiratory: Present prolonged expiratory phase, rhonchi, stridor and diminished air movement *Routine Cardiovascular Exam Cardiovascular: Present Normal S1, Normal S2 and tachycardia *Routine Abdominal Exam Abdominal: Present soft and normoactive bowel sounds; Absent tenderness *Routine Rectal Exam Rectal:: deferred *Routine Genitalia Exam Genitalia:: deferred *Routine Extremities Exam Extremities: Present full ROM; Absent cyanosis, clubbing or edema *Routine Skin Exam Skin: Present intact and dry; Absent rash *Routine Neurological Exam Neurological: Present alert, oriented X3, hearing grossly intact and normal speech Routine Psychiatric Exam Psychiatric: Present normal affect Assessment and Plan *Assessment and plan (1) Acute hypoxemic respiratory failure: Status: Acute Category: Medical Code(s): J96.01 - Acute respiratory failure with hypoxia (2) Chronic lung disease: Status: Acute Category: Medical Code(s): J98.4 - Other disorders of lung (3) Tachycardia: Status: Acute Category: Medical Code(s): R00.0 - Tachycardia, unspecified (4) Underweight (BMI < 18.5): Status: Acute Category: Medical Code(s): R63.6 - Underweight; Z68.1 - Body mass index [BMI] 19.9 or less, adult (5) Tobacco use disorder: Status: Acute Category: Medical Code(s): F17.200 - Nicotine dependence, unspecified, uncomplicated Plan Ms. Mason is a 70-year-old female who presented to the emergency department today due to shortness of breath. Patient has a primary medical history of COPD exacerbation, chronic lung disease, and depression. She presented with increasing shortness of breath for the last few weeks, worsening over the past 72 hours. Patient initially was tachypneic, tachycardic, and oxygen saturation was noted at 72%. She states she did use her rescue inhaler multiple times without improvement. She denies chest pain, abdominal pain, fevers, chills, nausea, vomiting, diarrhea. She states that she does not have a PCP and has been hospitalized in the past for COPD exacerbation but has not followed up with a inside account representative. Patient was placed on 4 L nasal cannula and oxygen saturation of greater than 90% was achieved. She was given magnesium, DuoNebs x 3, crystalloid bolus, and IV methylprednisolone. Chest x-ray showed flattening of the diaphragm with interstitial opacities consistent with chronic lung disease versus atypical pneumonia. No leukocytosis, no anemia, no electrolyte abnormalities, normal kidney function noted. I was consulted by the ED physician who requested hospital admission for acute hypoxic respiratory failure, I agreed to admit the patient for further care. Plan of care as follows: #Acute hypoxemic respiratory failure #Chronic lung disease ? Patient was placed on 4 L nasal cannula and O2 saturation was greater than 90%. Patient initially tachypneic but respirations are now within normal range. Patient received ceftriaxone 1 g and azithromycin 500 mg IV in the ED. D- dimer 0.60, Negative troponin, negative COVID and flu swab, full respiratory panel pending. At this time we will hold on continuation of antibiotics due to low suspicion for infection. ? Plans to continue to wean oxygen as tolerated, currently on 3.5 L. Continue Pulmicort twice daily, Xopenex and ipratropium 4 times daily scheduled. Sputum culture pending. ? Pulmonology consulted for further recommendations. #Tachycardia ? Patient has been tachycardic heart rate between 100?140. Patient states that her heart rate typically runs around 100 at baseline. Echo ordered for cardiac evaluation. If echo normal plans to start low-dose beta-елена. #Underweight, BMI 17.8 ? Patient is very thin, BMI 17.8. Nutrition consulted. Patient appears to have low muscle mass, it does appear her weight is stable through previous visits. #Tobacco use disorder ? Discussed smoking cessation, patient endorses smoking approximately 1 PPD. Nicotine patches ordered as needed. DNI Ambulate as tolerated Regular diet VTE?Lovenox
--- NOTE | 2025-08-22 11:31 | PC.NURSE ---
report called to Lacey
[2025-08-22 11:52] LABS: Thyroid Stimulating Hormone 0.39 uIU/mL (0.465-4.68)
--- NOTE | 2025-08-22 11:54 | PC.NURSE ---
arrived from ED to room 209
--- NOTE | 2025-08-22 12:23 | CA_ITS ---
APPROVED REPORT EXAM: Comprehensive 2D, Doppler, and color-flow Echocardiogram [employer] Administrator: RT Danni(R) Ht: 5 ft 1 in Wt: 94lbs BSA: 1.37 BP: 117/75 mmHg Indications: COPD, tachycardia Left Ventricle The left ventricle is normal size. Left ventricular systolic function is normal. The left ventricular ejection fraction is within the normal range. There is increased left ventricular wall thickness. Regional wall motion cannot be evaluated in the setting of technically difficult study. The left ventricular diastolic function is indeterminate. LVEF is 65% Right Ventricle The right ventricle is not very well-visualized, but grossly appears nondilated with normal RV function. Atria The left atrium is not well-visualized. The right atrium is not well-visualized. There is no color Doppler evidence of interatrial shunt. Aortic Valve The aortic valve leaflets are not well-visualized. There is no hemodynamically significant aortic valvular stenosis. No aortic regurgitation is present. Mitral Valve The mitral valve is normal in structure. No evidence of mitral valve stenosis. Mild mitral regurgitation is present. Tricuspid Valve The tricuspid valve leaflets are thin and pliable. Mild tricuspid regurgitation. There is insufficient TR jet to estimate RVSP. Pulmonic Valve The pulmonary valve leaflets are not well-visualized. Trace pulmonic valve regurgitation is present. Great Vessels The aortic root is not well-visualized.. IVC is dilated. Pericardium There is no pericardial effusion. Other Information Study Quality: Technically Difficult Conclusion Technically difficult study. Grossly, normal biventricular systolic function. Mild RV dilation. Mild MR, mild TR. Electronically signed by : Ivonne Brito MD 08/22/2025 23:02:22
[2025-08-22 13:01] LABS: Free T4 (Free Thyroxine) 1.82 ng/dl (0.78-2.19)
[2025-08-22 13:09] LABS: Hemoglobin A1C 5.8 % (4.0-6.0)
[2025-08-22 13:10] LABS: Troponin I < 0.01 ng/ml (0.00-0.034)
[2025-08-22] MEDS: ESCITALOPRAM 20MG TABLET 20 MG PO (13:19)
[2025-08-22] MEDS: SODIUM CHLORIDE 3% 15ML NEB 3 ML IH (14:44)
[2025-08-22] MEDS: 0.9 % SODIUM CHLORIDE 1000ML 1,000 ML 100 ML IV ×2 (15:16→23:58)
--- NOTE | 2025-08-22 15:23 | EXP.PULM.CON ---
History of Present Illness History of present illness: Ms. Mason is a 70-year-old female current smoker greater than [id number] smoking last seen in the hospital September 2024 for worsening respiratory distress discharged home on oxygen supplementation and Trelegy 100 inhaler instructed presumed COPD exacerbation presented to the ER again with worsening respiratory distress and pulmonary was called for further evaluation and management. Admits worsening respirations for the last 2 to 3 weeks. No worsening cough or productive phlegm PFSH PFS Disclaimer: The information contained in this section may have been updated after the patient was seen, as this information can be updated by other users. Medical History (Updated 08/22/25 @ 14:26 by Patito Mcgovern APRN) Laceration of wrist, right COPD (chronic obstructive pulmonary disease) Surgical History History of tubal ligation Family History Other COPD (chronic obstructive pulmonary disease) Cancer Social History (Updated 08/22/25 @ 12:26 by Anna Tomas RN) Smoking Status: Current every day smoker alcohol intake: never current occupational status: employed and other Travel in the last 8 weeks?: None Have you lived/traveled outside US in past 30 days?: No Contact w/someone who lives/traveled outside US past 30 days?: No Exposure to someone with infectious disease in past 14 days?: No Do you have a fever (greater than 100.4 F or 38 C)?: No Have you tested positive for COVID-19?: No Exposed to someone with COVID-19 in past 14 days?: No Do you have a sore throat?: No Do you have a cough?: No Do you have any weakness?: No Are you experiencing any nausea/vomitting?: No Do you have any diarrhea?: No Are you experiencing any unusual bleeding?: No Do you have any muscle aches/pain?: No Do you have any abdominal pain?: No Are you experiencing loss of taste or smell?: No Review of Systems Constitutional Constitutional: Reports anorexia, Reports body ache(s) and Reports fatigue Eyes Eyes: Denies eye discharge, Denies dry eyes, Denies irritation and Denies itchy eyes ENT Ears, Nose, Mouth, and Throat: Denies epistaxis, Denies facial pain, Denies lip swelling and Denies throat swelling *Cardiovascular Cardiovascular: Reports dyspnea and Reports dyspnea on exertion *Respiratory Respiratory: Denies change in phlegm color, Reports chest congestion, Reports cough, Reports dyspnea, Reports dyspnea on exertion, Denies excessive phlegm production and Reports wheezing *Gastrointestinal Gastrointestinal: Denies abdominal pain, Denies belching and Denies cramping *Musculoskeletal Musculoskeletal: Reports back pain, Reports myalgias and Reports other (No small joint swelling or Pain) Psychiatric Psychiatric: Denies homicidal ideation and Denies suicidal ideation Endocrine Endocrine: Reports fatigue and Denies heat intolerance Hematologic/Lymphatic Hematologic/Lymphatic: Denies easy bleeding and Denies lymphadenopathy Allergic/Immunologic Allergic/Immunologic: Denies itchy eyes, Denies lip swelling, Denies throat swelling and Reports wheezing Pulmonology Exam Inpatient Vital signs and Labs for Last 24 Hours: Temp Pulse Resp BP Pulse Ox O2 Del Method O2 Flow Rate 98.8 F 98 H 18 103/62 L 91 L Nasal Cannula 3 08/22/25 11:57 08/22/25 14:46 08/22/25 14:46 08/22/25 11:57 08/22/25 11:57 08/22/25 15:10 08/22/25 15:10 Laboratory Results - last 24 hr 08/22/25 08:55: WBC 10.3, RBC 5.71 H, Hgb 16.7 H, Hct 51.8 H, MCV 90.7, MCH 29.2, MCHC 32.2, RDW 13.1, Plt Count 308, MPV 10.2, Neut % (Auto) 70.5, Lymph % (Auto) 18.1, [place] % (Auto) 6.8, Eos % (Auto) 3.3, Baso % (Auto) 1.0, Neut # (Auto) 7.3, Lymph # (Auto) 1.9, [place] # (Auto) 0.7, Eos # (Auto) 0.3, Baso # (Auto) 0.1, D-Dimer 0.60 H, Sodium 137, Potassium 4.0, Chloride 100, Carbon Dioxide 28, Anion Gap 13.0, BUN 9, Creatinine 0.60, Estimated Creat Clear 37, Estimated GFR 99, Est GFR ( Amer) 120, Glucose 122 H, Hemoglobin A1c 5.8, Calcium 9.2, Total Bilirubin 0.8, AST 31, ALT 18, Alkaline Phosphatase 101, Troponin I < 0.01, NT-Pro-B Natriuret Pep 79.1, Total Protein 7.0, Albumin 3.7, Globulin 3.3 H, Albumin/Globulin Ratio 1.1, TSH 0.39 L, SARS-CoV-2 (PCR) Not detected, Influenza A Untype (PCR) Not detected, Influenza Type B (PCR) Not detected 08/22/25 09:05: VBG pH 7.32, VBG pCO2 52.5 H, VBG pO2 39.3, VBG HCO3 26.5, VBG Total CO2 28.1 H, VBG O2 Saturation 76.4 H, VBG Base Excess 0.4, VBG Lactic Acid 1.4 08/22/25 12:18: Troponin I < 0.01, Free T4 1.82 I & O for Labs for Last 24 Hours: Intake & Output 08/19/25 08/20/25 08/21/25 08/22/25 23:59 23:59 23:59 23:59 Intake Total 370 / 370 Balance 370 / 370 Weight 94 lb Constitutional: Present mild distress Head: Present normocephalic and atraumatic ENT: Present normal exam, normal oropharynx and mucous membranes moist Neck: Present normal inspection and full ROM Respiratory: Present prolonged expiratory phase, respiratory distress and able to speak in complete sentences; Absent wheezes Cardiac: Present S1/S2, Tachycardia and radial pulses present GI: Present soft and distention; Absent tenderness or guarding Rectal (female): Present deferred (female): Present deferred Skin: Present intact; Absent cyanosis or jaundice Neuro: Present alert, awake and oriented x 3 Extremities: Present normal inspection; Absent clubbing or cyanosis Psychiatric: Present normal affect and cooperative Meds Home Medications and Allergies Home Medications ?Medication ?Instructions ?Recorded ?Confirmed ?Type albuterol sulfate 90 mcg/actuation 2 puff inhalation Q6HP PRN 04/21/25 08/22/25 Rx aerosol inhaler (Ventolin HFA) Shortness Of Breath #8.5 grams escitalopram oxalate 20 mg tablet 20 mg PO DAILY #90 tabs 04/21/25 08/22/25 Rx (Lexapro) New Prescriptions to Start Prescriptions: Allergies Allergy/AdvReac Type Severity Reaction Status Date / Time No Known Allergies Allergy Unverified 07/19/19 12:47 Results Laboratory Findings 08/22/25 08:55 08/22/25 08:55 PT/INR, D-dimer D-Dimer 0.60 ug/mL (0.0-0.5) H 08/22/25 08:55 Abnormal lab findings: Abnormal Labs 08/22/25 08/22/25 08:55 09:05 RBC 5.71 H Hgb 16.7 H Hct 51.8 H D-Dimer 0.60 H VBG pCO2 52.5 H VBG Total CO2 28.1 H VBG O2 Saturation 76.4 H Glucose 122 H Globulin 3.3 H TSH 0.39 L Assessment and Plan *Assessment and plan (1) Acute hypoxemic respiratory failure: Status: Acute Category: Medical Code(s): J96.01 - Acute respiratory failure with hypoxia (2) Acute exacerbation of chronic obstructive pulmonary disease: Status: Acute Category: Medical Code(s): J44.1 - Chronic obstructive pulmonary disease with (acute) exacerbation (3) Tobacco use disorder: Status: Acute Category: Medical Code(s): F17.200 - Nicotine dependence, unspecified, uncomplicated Plan Ms. Mason is a 70-year-old female current smoker greater than [id number] smoking last seen in the hospital September 2024 for worsening respiratory distress discharged home on oxygen supplementation and Trelegy 100 inhaler instructed presumed COPD exacerbation presented to the ER again with worsening respiratory distress and pulmonary was called for further evaluation and management. Admits worsening respirations for the last 2 to 3 weeks. No worsening cough or productive phlegm Afebrile. Hemodynamically stable. No evidence of significant leukocytosis. Blood gas upon admission mild hypercarbic respiratory failure 7.32, 52.5. COVID-19 and flu PCR panel negative. Chest x-ray upon admission continue to hyperinflated lung moralez with no evidence of consolidative/airspace changes. Patient has not been using a Trelegy 100 inhaler secondary to intense compliance issues. Continue to smoke. Symptoms on a daily basis. Chest decreased breath sounds. No significant wheezing. Plan: Breztri inhaler 2 puffs twice daily DuoNebs 4 times daily as needed Prednisone 40 mg daily to complete a total of 5-day course No need for antibiotics from pulmonary standpoint Patient will also need nebulization machine prior to discharge # She does not have any recent prior low-dose CT scans available for review we will schedule that as an outpatient basis
[2025-08-22 16:42] LABS: Troponin I < 0.01 ng/ml (0.00-0.034)
[2025-08-22] MEDS: BUDESONIDE/GLYCOPYR/FORMOTEROL 160/9/4.8MCG INHALER 2 PUFF IH (18:58)
[2025-08-22] MEDS: LEVALBUTEROL 1.25MG/3ML NEB 1.25 MG IH ×2 (18:58→23:03)
--- NOTE | 2025-08-22 23:59 | PC.NURSE ---
Addendum entered by Albina Little RN 08/23/25 00:07: see VS charting Original Note: pt c/o SOA - o2 sat 88% on 2L NC - increased to 3L NC unable to go above 90% - increased to 3.5L NC and patient resting comfortably now.
[2025-08-23] VITALS (13 sets, daily range): BP systolic 93–118; BP diastolic 47–70; PULSE 73–117; RESP 15–18; TEMP 36.5–37.1; O2SAT 86–94; BMI 18.8
[2025-08-23] MEDS: BUDESONIDE/GLYCOPYR/FORMOTEROL 160/9/4.8MCG INHALER 2 PUFF IH ×2 (06:09→18:07)
[2025-08-23] MEDS: LEVALBUTEROL 1.25MG/3ML NEB 1.25 MG IH ×2 (06:09→11:02)
[2025-08-23 06:15] LABS: Hematocrit 42.4 % (37.0-47.0); Immature Granulocytes % 0.6 %; Mean Corpuscular HGB Conc 33.0 g/dL (31.8-35.4); Mean Corpuscular Hemoglobin 30.0 pg (27.0-31.2); Mean Corpuscular Volume 90.8 fl (81-99); Nucleated Red Blood Cells % 0 %; Platelet Count 273 K/mm3 (142-424); Red Blood Count 4.67 M/mm3 (4.20-5.40); Red Cell Distribution Width-SD 44.4 fL; White Blood Count 22.0 K/mm3 (4.8-10.8)
[2025-08-23 06:27] LABS: Alanine Aminotransferase 11 U/L (12-78); Albumin Level 2.8 g/dl (3.5-5.0); Albumin/Globulin Ratio 0.8 (1.1-1.8); Alkaline Phosphatase 73 U/L (38-126); Anion Gap 7.3 mEq/L (5-15); Aspartate Amino Transferase 20 U/L (14-36); Bilirubin,Total 0.4 mg/dl (0.2-1.3); Blood Urea Nitrogen 10 mg/dl (7-17); Calcium 8.3 mg/dl (8.4-10.2); Carbon Dioxide 26 mmol/L (22.0-30.0); Chloride 106 mmol/L (98-107); Cholesterol 134 mg/dl (140-200); Creatinine Clearance Estimated 39 mL/min (50-200); Creatinine,Serum 0.60 mg/dl (0.52-1.04); Estimated Glomerular Filt Rate 99 ml/min (>60); GFR (African American) 120 ML/MIN (>60); Globulin 3.4 g/dL (1.3-3.2); Glucose 98 mg/dl (74-100); HDL Cholesterol 49 mg/dl (40-60); Magnesium 1.9 mg/dl (1.6-2.3); Potassium 4.3 mmoL/L (3.5-5.1); Sodium 135 mmol/L (136-145); Total Protein,Serum 6.2 g/dl (6.3-8.2); Triglycerides 66 mg/dl (30-150)
[2025-08-23 07:02] LABS: Hemoglobin 14.0 g/dL (12.2-16.2)
[2025-08-23] MEDS: ESCITALOPRAM 20MG TABLET 20 MG PO (08:04)
[2025-08-23 08:33] LABS: Adenovirus,PCR Not Detected (NotDetected); Chlamydophila Pneumoniae, PCR Not Detected (NotDetected); Coronavirus 19, PCR Not Detected (NotDetected); Coronovirus HKU1,PCR Not Detected (NotDetected); Influenza A, PCR Not Detected (NotDetected); Influenza AH1, 2009 Not Detected (NotDetected); Influenza AH1, PCR Not Detected (NotDetected); Influenza AH3,PCR Not Detected (NotDetected); Influenza B, PCR Not Detected (NotDetected); Mycoplasma Pneumoniae, PCR Not Detected (NotDetected); Parainfluenza 1, PCR Not Detected (NotDetected); Parainfluenza 2, PCR Not Detected (NotDetected); Parainfluenza 3, PCR Not Detected (NotDetected); Parainfluenza 4, PCR Not Detected (NotDetected)
[2025-08-23 08:43] LABS: RBC Morphology Normal; Total Cells Counted 100
--- NOTE | 2025-08-23 12:01 | P.PN_ITS ---
<Statement entered by Aiden Dior MD - 08/27/25 15:37> Agree with plan of care as outlined by the LEVEL VIAL SETTER. Continue treatment of suspected COPD exacerbation as below. Subjective *Date: 08/23/25 *Time: 14:14 Interval history: Patient appears to be doing well today, stable on 3.5 L O2. Baseline room air. Continue to wean as tolerated. Lung sounds improving. Attempted to wean oxygen overnight without success. Medical Exam Vital signs and Labs for Last 24 Hours: Vital Signs Temp Pulse Pulse Resp BP Pulse Ox O2 Del Method 08/23/25 11:59 98.0 F 78 18 157/98 H 97 Room Air 08/23/25 11:03 108 H 08/23/25 11:03 102 H 08/23/25 11:03 90 L Nasal Cannula 08/23/25 10:50 Nasal Cannula 08/23/25 08:32 Nasal Cannula 08/23/25 07:44 98.0 F 117 H 18 98/54 L 90 L Nasal Cannula 08/23/25 07:33 Nasal Cannula 08/23/25 06:16 Nasal Cannula 08/23/25 06:10 100 H 08/23/25 06:10 105 H 08/23/25 06:10 91 L Nasal Cannula 08/23/25 05:00 Nasal Cannula 08/23/25 04:00 98.3 F 88 15 108/62 L 90 L Nasal Cannula 08/23/25 03:00 Nasal Cannula 08/23/25 01:00 Nasal Cannula 08/23/25 00:01 89 L Nasal Cannula 08/23/25 00:01 88 L Nasal Cannula 08/23/25 00:01 88 L Nasal Cannula 08/23/25 00:00 98.7 F 100 H 16 93/47 L 92 L Nasal Cannula 08/22/25 23:03 104 H 08/22/25 23:03 107 H 08/22/25 23:00 Nasal Cannula 08/22/25 21:00 Nasal Cannula 08/22/25 20:00 Nasal Cannula 08/22/25 20:00 98.7 F 112 H 16 95/55 L 91 L Room Air 08/22/25 19:06 114 H 08/22/25 19:06 114 H 08/22/25 19:06 92 L Nasal Cannula 08/22/25 18:41 Nasal Cannula 08/22/25 17:20 Nasal Cannula 08/22/25 16:00 98.5 F 111 H 14 87/50 L 92 L Nasal Cannula 08/22/25 15:10 Nasal Cannula 08/22/25 14:46 98 H 18 08/22/25 13:15 Nasal Cannula O2 Flow Rate FiO2 08/23/25 11:59 08/23/25 11:03 08/23/25 11:03 08/23/25 11:03 3.5 08/23/25 10:50 3.5 08/23/25 08:32 3.5 08/23/25 07:44 3.5 08/23/25 07:33 3.5 08/23/25 06:16 3.5 08/23/25 06:10 08/23/25 06:10 08/23/25 06:10 3 32 08/23/25 05:00 3.5 08/23/25 04:00 3.5 08/23/25 03:00 3.5 08/23/25 01:00 3.5 08/23/25 00:01 3.5 08/23/25 00:01 3 08/23/25 00:01 2 08/23/25 00:00 3.5 08/22/25 23:03 08/22/25 23:03 08/22/25 23:00 2 08/22/25 21:00 2 08/22/25 20:00 2 08/22/25 20:00 2 08/22/25 19:06 08/22/25 19:06 08/22/25 19:06 2 08/22/25 18:41 3 08/22/25 17:20 3 08/22/25 16:00 2 08/22/25 15:10 3 08/22/25 14:46 08/22/25 13:15 3.5 Intake and Output 08/22/25 08/23/25 08/23/25 23:59 07:59 15:59 Intake Total 2210 / 2580 1270 / 1270 Output Total 0 / 0 Balance 2210 / 2580 0 / 1270 1270 / 1270 Intake: Intake, Oral Amount 960 / 1230 270 / 270 Intake, Total IV Amount 1250 / 1350 1000 / 1000 0.9 % Sodium Chloride 1000ML 1, 1000 / 1000 1000 / 1000 000 ml @ 100 mls/hr IV .Q10H [facility] Rx#:[id number] Azithromycin 500 mg In 0.9 % 250 / 250 Sodium Chloride 250 ml @ 250 mls/hr IV ONCE ONE Rx#:[id number] Output: Output, Urine Amount 0 / 0 Other: Number of Unmeasured Voids 2 Weight 45.359 kg Patient Weight 08/23/25 23:59 Weight 45.359 kg Laboratory Results - last 24 hr 08/22/25 08:55: Hemoglobin A1c 5.8 08/22/25 09:26: Chlamy pneumoniae PCR Not detected, Adenovirus (PCR) Not d etected, B. pertussis DNA (PCR) Not detected, Coronavirus OC43 (PCR) Not detected, Coronavirus HKU1 (PCR) Not detected, Coronavirus 229E (PCR) Not detected, SARS-CoV-2 (PCR) Not detected, Coronavirus NL63 (PCR) Not detected, Human Metapneumovir PCR Not detected, Influenza A (H1) PCR Not detected, Influ A (H1N1/09) PCR Not detected, Influenza A (H3) PCR Not detected, Influenza Type A (PCR) Not detected, Influenza Type B (PCR) Not detected, M. pneumoniae (PCR) Not detected, Parainfluenza 1 (PCR) Not detected, Parainfluenza 2 (PCR) Not detected, Parainfluenza 3 (PCR) Not detected, Parainfluenza 4 (PCR) Not detected, RSV (PCR) Not detected, Entero/Rhino (PCR) Not detected 08/22/25 12:18: Troponin I < 0.01, Free T4 1.82 08/22/25 15:17: Troponin I < 0.01 08/23/25 05:36: WBC 22.0 H* D, RBC 4.67, Hgb 14.0 D, Hct 42.4, MCV 90.8, MCH 30.0, MCHC 33.0, RDW 13.2, Plt Count 273, MPV 10.4, Neut % (Auto) 81.6 H, Lymph % (Auto) 7.8 L, [place] % (Auto) 8.4, Eos % (Auto) 1.4, Baso % (Auto) 0.2, Neut # (Auto) 17.9 H, Lymph # (Auto) 1.7, [place] # (Auto) 1.9 H, Eos # (Auto) 0.3, Baso # (Auto) 0.1, Total Counted 100, Neutrophils % (Manual) 85 H, Lymphocytes % (Manual) 9 L, Monocytes % (Manual) 6, Platelet Estimate Normal, RBC Morphology Normal, Sodium 135 L, Potassium 4.3, Chloride 106, Carbon Dioxide 26, Anion Gap 7.3, BUN 10, Creatinine 0.60, Estimated Creat Clear 39, Estimated GFR 99, Est GFR ( Amer) 120, Glucose 98, Calcium 8.3 L, Magnesium 1.9, Total Bilirubin 0.4, AST 20 D, ALT 11 L D, Alkaline Phosphatase 73, Total Protein 6.2 L, Albumin 2.8 L D, Globulin 3.4 H, Albumin/Globulin Ratio 0.8 L, Triglycerides 66, Cholesterol 134 L, LDL Cholesterol Direct 57.38 L, VLDL Cholesterol 13, HDL Cholesterol 49, Cholesterol/HDL Ratio 2.7 I & O for Labs for Last 24 Hours: Intake & Output 08/20/25 08/21/25 08/22/25 08/23/25 23:59 23:59 23:59 23:59 Intake Total 2580 / 2580 1270 / 1270 Output Total 0 / 0 Balance 2580 / 2580 1270 / 1270 Weight 42.638 kg 45.359 kg Microbiology Reports for the Last 24 Hours: Microbiology 08/22/25 09:25 Blood Blood Culture - Preliminary NO GROWTH AFTER 24 HOURS 08/22/25 15:00 Sputum - Expectorated Sputum Gram Stain - Final 08/22/25 15:00 Sputum - Expectorated Sputum Sputum Culture - Preliminary 08/22/25 08:55 Blood Blood Culture - Preliminary NO GROWTH AFTER 24 HOURS Constitutional: Present no acute distress and thin Head: Present atraumatic Neck: Present normal inspection Respiratory: Present prolonged expiratory phase, rhonchi and wheezes Cardiac: Present Regular Rhythm and Tachycardia GI: Present soft; Absent distention or tenderness Rectal (female): Present deferred (female): Present deferred Extremities: Present normal inspection Skin: Present intact and dry; Absent rash Neuro: Present alert, awake and oriented x 3 Assessment and Plan *Assessment and plan (1) Acute hypoxemic respiratory failure: Status: Acute Category: Medical Code(s): J96.01 - Acute respiratory failure with hypoxia (2) Chronic lung disease: Status: Acute Category: Medical Code(s): J98.4 - Other disorders of lung (3) Tachycardia: Status: Acute Category: Medical Code(s): R00.0 - Tachycardia, unspecified (4) Underweight (BMI < 18.5): Status: Acute Category: Medical Code(s): R63.6 - Underweight; Z68.1 - Body mass index [BMI] 19.9 or less, adult (5) Tobacco use disorder: Status: Acute Category: Medical Code(s): F17.200 - Nicotine dependence, unspecified, uncomplicated Plan Ms. Mason is a 70-year-old female who presented to the emergency department due to shortness of breath. Patient has a primary medical history of COPD exacerbation, chronic lung disease, and depression. She presented with increasing shortness of breath for the last few weeks, worsening over the past 72 hours prior to admission. Patient initially was tachypneic, tachycardic, and oxygen saturation was noted at 72%. She states she did use her rescue inhaler multiple times without improvement. She denies chest pain, abdominal pain, fevers, chills, nausea, vomiting, diarrhea. She states that she does not have a PCP and has been hospitalized in the past for COPD exacerbation but has not followed up with a hose sprayer. Patient was placed on 4 L nasal cannula and oxygen saturation of greater than 90% was achieved. She was given magnesium, DuoNebs x 3, crystalloid bolus, and IV methylprednisolone. Chest x-ray showed flattening of the diaphragm with interstitial opacities consistent with chronic lung disease versus atypical pneumonia. No leukocytosis, no anemia, no electrolyte abnormalities, normal kidney function noted. I was consulted by the ED physician who requested hospital admission for acute hypoxic respiratory failure, I agreed to admit the patient for further care. Plan of care as follows: Patient continues to necessitate inpatient care due to increased oxygen supplementation need and steroids. Anticipate discharge in the next 1 to 2 days. #Acute hypoxemic respiratory failure #Chronic lung disease ? Patient was placed on 4 L nasal cannula and O2 saturation was greater than 90%. Patient initially tachypneic but respirations are now within normal range. Patient received ceftriaxone 1 g and azithromycin 500 mg IV in the ED. D- dimer 0.60, negative troponin, full respiratory panel negative. At this time we will hold on continuation of antibiotics due to low suspicion for infection. ? Plans to continue to wean oxygen as tolerated, currently on 3.5 L. Attempted to wean oxygen overnight without success. Continue Breztri twice daily, Xopenex and ipratropium 4 times daily scheduled. Sputum culture shows no reportable organisms. ? Pulmonology consulted recommend Breztri inhaler twice daily, prednisone 40 mg daily for total of 5 days, nebulizer machine at discharge. #Tachycardia ? Patient has been tachycardic heart rate between 100?140. Patient states that her heart rate typically runs around 100 at baseline. Echo ordered for cardiac evaluation, echo shows no abnormalities. Will hold on beta-елена at this time due to acute illness and steroid use. #Underweight, BMI 17.8 ? Patient is very thin, BMI 17.8. Nutrition consulted. Patient appears to have low muscle mass, it does appear her weight is stable through previous visits. ?Patient was seen by nutrition who recommended supplements daily, patient declined. Education provided on maintaining and improving nutrition status. #Tobacco use disorder ? Discussed smoking cessation, patient endorses smoking approximately 1 PPD. Nicotine patches ordered as needed. DNI Ambulate as tolerated Regular diet VTE?Lovenox
--- NOTE | 2025-08-23 18:10 | PC.NURSE ---
pt resting in bed, at her side, 02 @ 3.5L NC, A/Ox4, call light in reach
--- NOTE | 2025-08-23 19:30 | PC.NURSE ---
patient was very winded after ambulating to the toilet - unable to recover after 5 min of rest and sating at 86% on 3.5L NC - increased to 4L NC and patient was able to recover to 91% within 5 minutes.
[2025-08-24] VITALS (8 sets, daily range): BP systolic 112–133; BP diastolic 55–78; PULSE 72–98; RESP 17–18; TEMP 36.4–36.8; O2SAT 78–97; BMI 18.8
--- NOTE | 2025-08-24 00:25 | PC.NURSE ---
patient took a shower, severally desatted to 78% on 4L NC and unable to recover. Increased to 5L NC and teetering between 88-90%, unable to wean down at this time.
[2025-08-24] MEDS: BUDESONIDE/GLYCOPYR/FORMOTEROL 160/9/4.8MCG INHALER 2 PUFF IH ×2 (06:05→18:18)
[2025-08-24 06:18] LABS: Hematocrit 42.6 % (37.0-47.0); Hemoglobin 14.1 g/dL (12.2-16.2); Immature Granulocytes % 0.5 %; Mean Corpuscular HGB Conc 33.1 g/dL (31.8-35.4); Mean Corpuscular Hemoglobin 30.2 pg (27.0-31.2); Mean Corpuscular Volume 91.2 fl (81-99); Nucleated Red Blood Cells % 0 %; Platelet Count 283 K/mm3 (142-424); Red Blood Count 4.67 M/mm3 (4.20-5.40); Red Cell Distribution Width-SD 45.7 fL; White Blood Count 22.0 K/mm3 (4.8-10.8)
[2025-08-24 06:29] LABS: Albumin Level 2.5 g/dl (3.5-5.0); Chloride 105 mmol/L (98-107); Sodium 134 mmol/L (136-145)
[2025-08-24 06:30] LABS: Potassium 3.7 mmoL/L (3.5-5.1)
[2025-08-24 06:32] LABS: Alanine Aminotransferase 14 U/L (12-78); Albumin/Globulin Ratio 0.8 (1.1-1.8); Alkaline Phosphatase 66 U/L (38-126); Anion Gap 4.7 mEq/L (5-15); Aspartate Amino Transferase 28 U/L (14-36); Bilirubin,Total 0.4 mg/dl (0.2-1.3); Blood Urea Nitrogen 9 mg/dl (7-17); Calcium 8.3 mg/dl (8.4-10.2); Carbon Dioxide 28 mmol/L (22.0-30.0); Creatinine Clearance Estimated 38 mL/min (50-200); Creatinine,Serum 0.60 mg/dl (0.52-1.04); Estimated Glomerular Filt Rate 99 ml/min (>60); GFR (African American) 120 ML/MIN (>60); Globulin 3.2 g/dL (1.3-3.2); Glucose 85 mg/dl (74-100); Magnesium 2.0 mg/dl (1.6-2.3); Total Protein,Serum 5.7 g/dl (6.3-8.2)
[2025-08-24] MEDS: ESCITALOPRAM 20MG TABLET 20 MG PO (08:24)
--- NOTE | 2025-08-24 09:28 | XR_ITS ---
FINAL REPORT CLINICAL HISTORY: SOB COMPARISON: 08/22/2025 FINDINGS: SINGLE VIEW CHEST The heart is normal in size. The mediastinum is unremarkable. There are chronic changes at the bases. There is no pneumothorax. The osseous structures demonstrate thoracic scoliosis convex to the right measuring 45 degrees. IMPRESSION: Chronic findings. No change from prior, 2 days ago. Reviewed, Interpreted and Dictated by Wilver Oquendo MD Transcribed by Nancy Sylvester Authenticated and [facility]
--- NOTE | 2025-08-24 09:28 | EXP.PULM.PN ---
Subjective *Date: 08/24/25 *Time: 10:41 Interval history: No acute respiratory events overnight. Pulmonology Exam Inpatient Vital signs and Labs for Last 24 Hours: Temp Pulse Resp BP Pulse Ox O2 Del Method O2 Flow Rate 97.6 F 98 H 17 121/55 L 92 L Nasal Cannula 4 08/24/25 07:51 08/24/25 07:51 08/24/25 07:51 08/24/25 07:51 08/24/25 07:51 08/24/25 08:00 08/24/25 08:00 FiO2 32 08/23/25 06:10 Laboratory Results - last 24 hr 08/22/25 09:26: Chlamy pneumoniae PCR Not detected, Adenovirus (PCR) Not detected, B. pertussis DNA (PCR) Not detected, Coronavirus OC43 (PCR) Not detected, Coronavirus HKU1 (PCR) Not detected, Coronavirus 229E (PCR) Not detected, SARS-CoV-2 (PCR) Not detected, Coronavirus NL63 (PCR) Not detected, Human Metapneumovir PCR Not detected, Influenza A (H1) PCR Not detected, Influ A (H1N1/09) PCR Not detected, Influenza A (H3) PCR Not detected, Influenza Type A (PCR) Not detected, Influenza Type B (PCR) Not detected, M. pneumoniae (PCR) Not detected, Parainfluenza 1 (PCR) Not detected, Parainfluenza 2 (PCR) Not detected, Parainfluenza 3 (PCR) Not detected, Parainfluenza 4 (PCR) Not detected, RSV (PCR) Not detected, Entero/Rhino (PCR) Not detected 08/24/25 05:37: WBC 22.0 H*, RBC 4.67, Hgb 14.1, Hct 42.6, MCV 91.2, MCH 30.2, MCHC 33.1, RDW 13.6, Plt Count 283, MPV 10.3, Neut % (Auto) 75.6, Lymph % (Auto) 16.8, [place] % (Auto) 6.8, Eos % (Auto) 0.1, Baso % (Auto) 0.2, Neut # (Auto) 16.6 H, Lymph # (Auto) 3.7, [place] # (Auto) 1.5 H, Eos # (Auto) 0.0, Baso # (Auto) 0.0, Sodium 134 L, Potassium 3.7, Chloride 105, Carbon Dioxide 28, Anion Gap 4.7 L, BUN 9, Creatinine 0.60, Estimated Creat Clear 38, Estimated GFR 99, Est GFR ( Amer) 120, Glucose 85, Calcium 8.3 L, Magnesium 2.0, Total Bilirubin 0.4, AST 28 D, ALT 14 D, Alkaline Phosphatase 66, Total Protein 5.7 L, Albumin 2.5 L D, Globulin 3.2, Albumin/Globulin Ratio 0.8 L Temp Pulse Resp BP Pulse Ox O2 Del Method O2 Flow Rate 98.8 F 98 H 18 103/62 L 91 L Nasal Cannula 3 08/22/25 11:57 08/22/25 14:46 08/22/25 14:46 08/22/25 11:57 08/22/25 11:57 08/22/25 15:10 08/22/25 15:10 Laboratory Results - last 24 hr 08/22/25 08:55: WBC 10.3, RBC 5.71 H, Hgb 16.7 H, Hct 51.8 H, MCV 90.7, MCH 29.2, MCHC 32.2, RDW 13.1, Plt Count 308, MPV 10.2, Neut % (Auto) 70.5, Lymph % (Auto) 18.1, [place] % (Auto) 6.8, Eos % (Auto) 3.3, Baso % (Auto) 1.0, Neut # (Auto) 7.3, Lymph # (Auto) 1.9, [place] # (Auto) 0.7, Eos # (Auto) 0.3, Baso # (Auto) 0.1, D-Dimer 0.60 H, Sodium 137, Potassium 4.0, Chloride 100, Carbon Dioxide 28, Anion Gap 13.0, BUN 9, Creatinine 0.60, Estimated Creat Clear 37, Estimated GFR 99, Est GFR ( Amer) 120, Glucose 122 H, Hemoglobin A1c 5.8, Calcium 9.2, Total Bilirubin 0.8, AST 31, ALT 18, Alkaline Phosphatase 101, Troponin I < 0.01, NT-Pro-B Natriuret Pep 79.1, Total Protein 7.0, Albumin 3.7, Globulin 3.3 H, Albumin/Globulin Ratio 1.1, TSH 0.39 L, SARS-CoV-2 (PCR) Not detected, Influenza A Untype (PCR) Not detected, Influenza Type B (PCR) Not detected 08/22/25 09:05: VBG pH 7.32, VBG pCO2 52.5 H, VBG pO2 39.3, VBG HCO3 26.5, VBG Total CO2 28.1 H, VBG O2 Saturation 76.4 H, VBG Base Excess 0.4, VBG Lactic Acid 1.4 08/22/25 12:18: Troponin I < 0.01, Free T4 1.82 I & O for Labs for Last 24 Hours: Intake & Output 08/21/25 08/22/25 08/23/25 08/24/25 23:59 23:59 23:59 23:59 Intake Total 2580 / 2580 2510 / 2510 480 / 480 Output Total 550 / 550 400 / 400 Balance 2580 / 2580 1960 / 1960 80 / 80 Weight 94 lb 100 lb 99 lb 12.8 oz Intake & Output 08/19/25 08/20/25 08/21/25 08/22/25 23:59 23:59 23:59 23:59 Intake Total 370 / 370 Balance 370 / 370 Weight 94 lb Microbiology Reports for the Last 24 Hours: Microbiology 08/22/25 09:25 Blood Blood Culture - Preliminary NO GROWTH AFTER 48 HOURS 08/22/25 08:55 Blood Blood Culture - Preliminary NO GROWTH AFTER 48 HOURS 08/22/25 15:00 Sputum - Expectorated Sputum Gram Stain - Final 08/22/25 15:00 Sputum - Expectorated Sputum Sputum Culture - Preliminary Constitutional: Present moderate distress Head: Present normocephalic and atraumatic ENT: Present normal exam, normal oropharynx and mucous membranes moist Neck: Present normal inspection and full ROM Respiratory: Present prolonged expiratory phase, respiratory distress and able to speak in complete sentences; Absent wheezes Cardiac: Present S1/S2, Tachycardia and radial pulses present GI: Present soft and distention; Absent tenderness or guarding Rectal (female): Present deferred (female): Present deferred Skin: Present intact; Absent cyanosis or jaundice Neuro: Present alert, awake and oriented x 3 Extremities: Present normal inspection; Absent clubbing or cyanosis Psychiatric: Present normal affect and cooperative Assessment and Plan *Assessment and plan (1) Acute hypoxemic respiratory failure: Status: Acute Category: Medical Code(s): J96.01 - Acute respiratory failure with hypoxia (2) Acute exacerbation of chronic obstructive pulmonary disease: Status: Acute Category: Medical Code(s): J44.1 - Chronic obstructive pulmonary disease with (acute) exacerbation (3) Tobacco use disorder: Status: Acute Category: Medical Code(s): F17.200 - Nicotine dependence, unspecified, uncomplicated Plan Ms. Mason is a 70-year-old female current smoker greater than [id number] smoking last seen in the hospital September 2024 for worsening respiratory distress discharged home on oxygen supplementation and Trelegy 100 inhaler instructed presumed COPD exacerbation presented to the ER again with worsening respiratory distress and pulmonary was called for further evaluation and management. Admits worsening respirations for the last 2 to 3 weeks. No worsening cough or productive phlegm Afebrile. Hemodynamically stable. No evidence of significant leukocytosis. Blood gas upon admission mild hypercarbic respiratory failure 7.32, 52.5. COVID-19 and flu PCR panel negative. Chest x-ray upon admission continue to hyperinflated lung moralez with no evidence of consolidative/airspace changes. Patient has not been using a Trelegy 100 inhaler secondary to intense compliance issues. Continue to smoke. Symptoms on a daily basis. Chest decreased breath sounds. No significant wheezing. Interval Update: No acute respiratory events. Continued weaning oxygen Crohn's, worsening from prior now needing 4 L nasal cannula only saturating 89%. Hyperinflation improved. No significant wheezing noted on auscultation. Worsening leukocytosis from admission. Repeat chest x-ray no acute pulmonary infiltrates. Currently not receiving antibiotics. Will follow with CTA PE protocol. Plan: CTA PE protocol Breztri inhaler 2 puffs twice daily DuoNebs 4 times daily as needed Prednisone 40 mg daily to complete a total of 5-day course No need for antibiotics from pulmonary standpoint, follow-up with [facility]PA Patient will also need nebulization machine prior to discharge # She does not have any recent prior low-dose CT scans available for review we will schedule that as an outpatient basis
--- NOTE | 2025-08-24 10:41 | CT_ITS ---
FINAL REPORT TECHNIQUE: The patient was injected with IV contrast. Axial images were obtained through the chest in a PE protocol. 3-D reconstruction images were also performed. Individualized dose reduction techniques using automated exposure control or adjustment of the MA and/or KV according to patient's size were employed. CLINICAL HISTORY: Hypoxia FINDINGS: There is a significant thoracic scoliosis convex to the right measuring about 45 degrees. Mediastinal vasculature is adequately opacified. No pulmonary artery filling defects are identified to suggest PE. There is no aortic dissection. There is no axillary adenopathy. There is no hilar or mediastinal adenopathy. The heart size is normal. There is no pericardial or pleural effusion. There are advanced changes of centrilobular emphysema. Mild patchy airspace opacity in the medial lung bases may be due to sequela of pneumonia or aspiration. There is a 3 mm nodule in the posterior left upper lobe seen on image 24. IMPRESSION: No pulmonary embolus or dissection. Advanced centrilobular emphysema. 3 mm nodule in the posterior left upper lobe. 1 year follow-up chest CT is recommended per Fleischner criteria. Reviewed, Interpreted and Dictated by Wilver Oquendo MD Transcribed by Isabel Lazo Authenticated and [facility]
--- NOTE | 2025-08-24 10:46 | P.PN_ITS ---
<Statement entered by Aiden Dior MD - 08/27/25 15:39> Agree with plan of care as outlined by the [employer]. Subjective *Date: 08/24/25 *Time: 14:29 Interval history: Ms. Mason states she is doing well this morning, still short of air more so with exertion. Patient currently on 4 L nasal cannula to maintain O2 saturation greater than 90%. Pulmonology consulted recommending chest CTA. Plans to attempt to wean oxygen as tolerated, continue steroids and inhalers. Medical Exam Vital signs and Labs for Last 24 Hours: Vital Signs Temp Pulse Pulse Resp BP Pulse Ox O2 Del Method 08/24/25 09:00 Nasal Cannula 08/24/25 08:00 Nasal Cannula 08/24/25 07:51 97.6 F 98 H 17 121/55 L 92 L Nasal Cannula 08/24/25 06:34 Nasal Cannula 08/24/25 06:06 93 L Nasal Cannula 08/24/25 05:00 Nasal Cannula 08/24/25 04:00 98.2 F 72 17 133/78 97 Nasal Cannula 08/24/25 03:00 Nasal Cannula 08/24/25 00:26 Nasal Cannula 08/24/25 00:24 89 L Nasal Cannula 08/24/25 00:24 78 L Nasal Cannula 08/23/25 23:50 97.9 F 73 17 118/70 94 L Nasal Cannula 08/23/25 23:00 Nasal Cannula 08/23/25 21:00 Nasal Cannula 08/23/25 20:00 Nasal Cannula 08/23/25 19:40 98.1 F 88 18 109/65 L 93 L Nasal Cannula 08/23/25 19:35 91 L Nasal Cannula 08/23/25 19:30 86 L Nasal Cannula 08/23/25 18:08 91 L Nasal Cannula 08/23/25 16:00 97.7 F 92 H 16 114/63 92 L Nasal Cannula 08/23/25 12:04 97.8 F 92 H 16 114/63 92 L Nasal Cannula 08/23/25 11:03 108 H 08/23/25 11:03 102 H 08/23/25 11:03 90 L Nasal Cannula 08/23/25 10:50 Nasal Cannula O2 Flow Rate 08/24/25 09:00 4 08/24/25 08:00 4 08/24/25 07:51 4 08/24/25 06:34 2 08/24/25 06:06 4 08/24/25 05:00 2 08/24/25 04:00 4 08/24/25 03:00 2 08/24/25 00:26 5 08/24/25 00:24 5 08/24/25 00:24 4 08/23/25 23:50 4 08/23/25 23:00 4 08/23/25 21:00 4 08/23/25 20:00 4 08/23/25 19:40 4 08/23/25 19:35 4 08/23/25 19:30 3.5 08/23/25 18:08 3.5 08/23/25 16:00 3.5 08/23/25 12:04 3.5 08/23/25 11:03 08/23/25 11:03 08/23/25 11:03 3.5 08/23/25 10:50 3.5 Intake and Output 08/23/25 08/24/25 08/24/25 23:59 07:59 15:59 Intake Total 870 / 2510 480 / 480 Output Total 550 / 550 400 / 400 Balance / 1960 -400 / 80 480 / 80 Intake: Intake, Oral Amount 870 / 1510 480 / 480 Output: Output, Urine Amount 550 / 550 400 / 400 Other: Number of Unmeasured Voids 0 0 Number of Bowel Movements 1 Weight 45.269 kg Patient Weight 08/24/25 23:59 Weight 45.269 kg Laboratory Results - last 24 hr 08/24/25 05:37: WBC 22.0 H*, RBC 4.67, Hgb 14.1, Hct 42.6, MCV 91.2, MCH 30.2, MCHC 33.1, RDW 13.6, Plt Count 283, MPV 10.3, Neut % (Auto) 75.6, Lymph % (Auto) 16.8, [place] % (Auto) 6.8, Eos % (Auto) 0.1, Baso % (Auto) 0.2, Neut # (Auto) 16.6 H, Lymph # (Auto) 3.7, [place] # (Auto) 1.5 H, Eos # (Auto) 0.0, Baso # (Auto) 0.0, Sodium 134 L, Potassium 3.7, Chloride 105, Carbon Dioxide 28, Anion Gap 4.7 L, BUN 9, Creatinine 0.60, Estimated Creat Clear 38, Estimated GFR 99, Est GFR ( Amer) 120, Glucose 85, Calcium 8.3 L, Magnesium 2.0, Total Bilirubin 0.4, AST 28 D, ALT 14 D, Alkaline Phosphatase 66, Total Protein 5.7 L, Albumin 2.5 L D, Globulin 3.2, Albumin/Globulin Ratio 0.8 L I & O for Labs for Last 24 Hours: Intake & Output 08/21/25 08/22/25 08/23/25 08/24/25 23:59 23:59 23:59 23:59 Intake Total 2580 / 2580 2510 / 2510 480 / 480 Output Total 550 / 550 400 / 400 Balance 2580 / 2580 1960 / 1960 80 / 80 Weight 42.638 kg 45.359 kg 45.269 kg Microbiology Reports for the Last 24 Hours: Microbiology 08/22/25 09:25 Blood Blood Culture - Preliminary NO GROWTH AFTER 48 HOURS 08/22/25 08:55 Blood Blood Culture - Preliminary NO GROWTH AFTER 48 HOURS 08/22/25 15:00 Sputum - Expectorated Sputum Gram Stain - Final 08/22/25 15:00 Sputum - Expectorated Sputum Sputum Culture - Preliminary Constitutional: Present no acute distress and thin Head: Present atraumatic Neck: Present normal inspection Respiratory: Present prolonged expiratory phase, rhonchi and wheezes Cardiac: Present Regular Rhythm and Tachycardia GI: Present soft; Absent distention or tenderness Rectal (female): Present deferred (female): Present deferred Extremities: Present normal inspection Skin: Present intact and dry; Absent rash Neuro: Present alert, awake and oriented x 3 Assessment and Plan *Assessment and plan (1) Acute hypoxemic respiratory failure: Status: Acute Category: Medical Code(s): J96.01 - Acute respiratory failure with hypoxia (2) Chronic lung disease: Status: Acute Category: Medical Code(s): J98.4 - Other disorders of lung (3) Tachycardia: Status: Acute Category: Medical Code(s): R00.0 - Tachycardia, unspecified (4) Underweight (BMI < 18.5): Status: Acute Category: Medical Code(s): R63.6 - Underweight; Z68.1 - Body mass index [BMI] 19.9 or less, adult (5) Tobacco use disorder: Status: Acute Category: Medical Code(s): F17.200 - Nicotine dependence, unspecified, uncomplicated Plan Ms. Mason is a 70-year-old female who presented to the emergency department due to shortness of breath. Patient has a primary medical history of COPD exacerbation, chronic lung disease, and depression. She presented with increasin g shortness of breath for the last few weeks, worsening over the past 72 hours prior to admission. Patient initially was tachypneic, tachycardic, and oxygen saturation was noted at 72%. She states she did use her rescue inhaler multiple times without improvement. She denies chest pain, abdominal pain, fevers, chills, nausea, vomiting, diarrhea. She states that she does not have a PCP and has been hospitalized in the past for COPD exacerbation but has not followed up with a beef cattle specialist. Patient was placed on 4 L nasal cannula and oxygen saturation of greater than 90% was achieved. She was given magnesium, DuoNebs x 3, crystalloid bolus, and IV methylprednisolone. Chest x-ray showed flattening of the diaphragm with interstitial opacities consistent with chronic lung disease versus atypical pneumonia. No leukocytosis, no anemia, no electrolyte abnormalities, normal kidney function noted. I was consulted by the ED physician who requested hospital admission for acute hypoxic respiratory failure, I agreed to admit the patient for further care. Plan of care as follows: Patient continues to necessitate inpatient care due to increased oxygen supplementation need and steroids. Anticipate discharge in the next 1 to 2 days. #Acute hypoxemic respiratory failure #Chronic lung disease ? Pulmonology recommending chest CTA due to increased oxygen demand but clinically improving. Patient attempted to ambulate overnight with 4 L nasal cannula and dropped down to mid 80s. CTA results pending. ? Patient was placed on 4 L nasal cannula and O2 saturation was greater than 90%. Patient initially tachypneic but respirations are now within normal range. Patient received ceftriaxone 1 g and azithromycin 500 mg IV in the ED. D- dimer 0.60, negative troponin, full respiratory panel negative. At this time we will hold on continuation of antibiotics due to low suspicion for infection. ? Plans to continue to wean oxygen as tolerated, currently on 4 L. Attempted to wean oxygen overnight without success. Continue Breztri twice daily, DuoNebs 4 times daily as needed. Sputum culture shows no reportable organisms. ? Pulmonology consulted recommend Breztri inhaler twice daily, prednisone 40 mg daily for total of 5 days, nebulizer machine at discharge. ? WBC elevated at 22 in the setting of steroid use. Electrolytes stable, kidney function within normal limits, magnesium 2.0. Blood cultures continue to show no growth after 48 hours. ? CBC, CMP, magnesium ordered for the a.m. #Tachycardia ? Patient has been tachycardic heart rate between 100?140. Patient states that her heart rate typically runs around 100 at baseline. Echo ordered for cardiac evaluation, echo shows no abnormalities. Will hold on beta-елена at this time due to acute illness and steroid use. #Underweight, BMI 17.8 ? Patient is very thin, BMI 17.8. Nutrition consulted. Patient appears to have low muscle mass, it does appear her weight is stable through previous visits. ? Patient was seen by nutrition who recommended supplements daily, patient declined. Education provided on maintaining and improving nutrition status. #Tobacco use disorder ? Discussed smoking cessation, patient endorses smoking approximately 1 PPD. Nicotine patches ordered as needed. DNI Ambulate as tolerated Regular diet VTE?Lovenox
[2025-08-24] MEDS: IOPAMIDOL-370 (76%);100ML BOTTLE 75 ML IV (11:35)
[2025-08-24] MEDS: SODIUM CHLORIDE 0.9% 10ML SYR (RAD ONLY) 10 ML IV (11:35)
[2025-08-24] MEDS: 0.9 % SODIUM CHLORIDE 50 ML VIAL 40 ML IV (11:35)
--- NOTE | 2025-08-24 18:04 | PC.NURSE ---
patient is a/ox4, remains on 4LNC. unable to wean O2 with saturations staying at 90%-92% with the 4L. patient ambulates to the bathroom independently, O2 drops to 87%-90% with ambulation, Hospitalist aware. IS at bedside, teaching taught, patient verbalized understanding. tolerating diet. call light within reach, no further requests at this time.
[2025-08-25] VITALS: BP 126/71; PULSE 77; RESP 16; TEMP 36.5; O2SAT 95
[2025-08-25 04:00] VITALS: BP 138/81; PULSE 87; RESP 16; TEMP 36.8; O2SAT 96; BMI 19.1
--- NOTE | 2025-08-25 04:17 | PC.NURSE ---
Pt is A&OX4. She has remained 90-93% on 4L. She has ambulated room independently. No complaints at this time, call light within reach.
[2025-08-25] MEDS: BUDESONIDE/GLYCOPYR/FORMOTEROL 160/9/4.8MCG INHALER 2 PUFF IH (06:00)
[2025-08-25 06:01] VITALS: O2SAT 93
[2025-08-25 06:20] LABS: Hematocrit 45.7 % (37.0-47.0); Hemoglobin 14.6 g/dL (12.2-16.2); Immature Granulocytes % 0.6 %; Mean Corpuscular HGB Conc 31.9 g/dL (31.8-35.4); Mean Corpuscular Hemoglobin 29.2 pg (27.0-31.2); Mean Corpuscular Volume 91.4 fl (81-99); Nucleated Red Blood Cells % 0 %; Platelet Count 278 K/mm3 (142-424); Red Blood Count 5.00 M/mm3 (4.20-5.40); Red Cell Distribution Width-SD 45.5 fL; White Blood Count 17.1 K/mm3 (4.8-10.8)
[2025-08-25 06:42] LABS: Albumin Level 3.8 g/dl (3.5-5.0); Chloride 103 mmol/L (98-107); Potassium 3.6 mmoL/L (3.5-5.1); Sodium 134 mmol/L (136-145)
[2025-08-25 06:44] LABS: Blood Urea Nitrogen 9 mg/dl (7-17); Creatinine Clearance Estimated 39 mL/min (50-200); Creatinine,Serum 0.60 mg/dl (0.52-1.04); Estimated Glomerular Filt Rate 99 ml/min (>60); GFR (African American) 120 ML/MIN (>60)
[2025-08-25 06:45] LABS: Alanine Aminotransferase 16 U/L (12-78); Albumin/Globulin Ratio 2.0 (1.1-1.8); Alkaline Phosphatase 70 U/L (38-126); Aspartate Amino Transferase 27 U/L (14-36); Bilirubin,Total 0.4 mg/dl (0.2-1.3); Calcium 8.1 mg/dl (8.4-10.2); Globulin 1.9 g/dL (1.3-3.2); Glucose 86 mg/dl (74-100); Magnesium 2.0 mg/dl (1.6-2.3); Total Protein,Serum 5.7 g/dl (6.3-8.2)
[2025-08-25 08:00] VITALS: BP 126/63; PULSE 98; RESP 16; TEMP 36.5; O2SAT 92
--- NOTE | 2025-08-25 08:01 | EXP.PULM.PN ---
Subjective *Date: 08/25/25 *Time: 14:33 Interval history: No acute respiratory events overnight. Continued to be needing oxygen supplementation. Denies any new respiratory complaints. Pulmonology Exam Inpatient Vital signs and Labs for Last 24 Hours: Temp Pulse Resp BP Pulse Ox O2 Del Method O2 Flow Rate 98.3 F 87 16 138/81 93 L Nasal Cannula 4 08/25/25 04:00 08/25/25 04:00 08/25/25 04:00 08/25/25 04:00 08/25/25 06:01 08/25/25 06:36 08/25/25 06:36 FiO2 32 08/23/25 06:10 Laboratory Results - last 24 hr 08/25/25 05:38: WBC 17.1 H, RBC 5.00, Hgb 14.6, Hct 45.7, MCV 91.4, MCH 29.2, MCHC 31.9, RDW 13.4, Plt Count 278, MPV 10.3, Neut % (Auto) 67.4, Lymph % (Auto) 22.7, [place] % (Auto) 8.4, Eos % (Auto) 0.5, Baso % (Auto) 0.4, Neut # (Auto) 11.6 H, Lymph # (Auto) 3.9, [place] # (Auto) 1.4 H, Eos # (Auto) 0.1, Baso # (Auto) 0.1, Sodium 134 L, Potassium 3.6, Chloride 103, Carbon Dioxide 30, BUN 9, Creatinine 0.60, Estimated Creat Clear 39, Estimated GFR 99, Est GFR ( Amer) 120, Glucose 86, Calcium 8.1 L, Magnesium 2.0, Total Bilirubin 0.4, AST 27, ALT 16, Alkaline Phosphatase 70, Total Protein 5.7 L, Albumin 3.8 D, Globulin 1.9, Albumin/Globulin Ratio 2.0 H Temp Pulse Resp BP Pulse Ox O2 Del Method O2 Flow Rate 98.8 F 98 H 18 103/62 L 91 L Nasal Cannula 3 08/22/25 11:57 08/22/25 14:46 08/22/25 14:46 08/22/25 11:57 08/22/25 11:57 08/22/25 15:10 08/22/25 15:10 Laboratory Results - last 24 hr 08/22/25 08:55: WBC 10.3, RBC 5.71 H, Hgb 16.7 H, Hct 51.8 H, MCV 90.7, MCH 29.2, MCHC 32.2, RDW 13.1, Plt Count 308, MPV 10.2, Neut % (Auto) 70.5, Lymph % (Auto) 18.1, [place] % (Auto) 6.8, Eos % (Auto) 3.3, Baso % (Auto) 1.0, Neut # (Auto) 7.3, Lymph # (Auto) 1.9, [place] # (Auto) 0.7, Eos # (Auto) 0.3, Baso # (Auto) 0.1, D-Dimer 0.60 H, Sodium 137, Potassium 4.0, Chloride 100, Carbon Dioxide 28, Anion Gap 13.0, BUN 9, Creatinine 0.60, Estimated Creat Clear 37, Estimated GFR 99, Est GFR ( Amer) 120, Glucose 122 H, Hemoglobin A1c 5.8, Calcium 9.2, Total Bilirubin 0.8, AST 31, ALT 18, Alkaline Phosphatase 101, Troponin I < 0.01, NT-Pro-B Natriuret Pep 79.1, Total Protein 7.0, Albumin 3.7, Globulin 3.3 H, Albumin/Globulin Ratio 1.1, TSH 0.39 L, SARS-CoV-2 (PCR) Not detected, Influenza A Untype (PCR) Not detected, Influenza Type B (PCR) Not detected 08/22/25 09:05: VBG pH 7.32, VBG pCO2 52.5 H, VBG pO2 39.3, VBG HCO3 26.5, VBG Total CO2 28.1 H, VBG O2 Saturation 76.4 H, VBG Base Excess 0.4, VBG Lactic Acid 1.4 08/22/25 12:18: Troponin I < 0.01, Free T4 1.82 I & O for Labs for Last 24 Hours: Intake & Output 08/22/25 08/23/25 08/24/25 08/25/25 23:59 23:59 23:59 23:59 Intake Total 258 / 2580 2510 / 2510 1400 / 1400 Output Total 550 / 550 1400 / 1400 0 / 0 Balance 2579 0 / 0 0 / 0 Weight 94 lb 100 lb 99 lb 12.8 oz 101 lb 6.4 oz Intake & Output 08/19/25 08/20/25 08/21/25 08/22/25 23:59 23:59 23:59 23:59 Intake Total 370 / 370 Balance 370 / 370 Weight 94 lb Microbiology Reports for the Last 24 Hours: Microbiology 08/22/25 15:00 Sputum - Expectorated Sputum Gram Stain - Final 08/22/25 15:00 Sputum - Expectorated Sputum Sputum Culture - Final 08/22/25 09:25 Blood Blood Culture - Preliminary NO GROWTH AFTER 48 HOURS 08/22/25 08:55 Blood Blood Culture - Preliminary NO GROWTH AFTER 48 HOURS Constitutional: Present moderate distress Head: Present normocephalic and atraumatic ENT: Present normal exam, normal oropharynx and mucous membranes moist Neck: Present normal inspection and full ROM Respiratory: Present prolonged expiratory phase, respiratory distress and able to speak in complete sentences; Absent wheezes Cardiac: Present S1/S2, Tachycardia and radial pulses present GI: Present soft and distention; Absent tenderness or guarding Rectal (female): Present deferred (female): Present deferred Skin: Present intact; Absent cyanosis or jaundice Neuro: Present alert, awake and oriented x 3 Extremities: Present normal inspection; Absent clubbing or cyanosis Psychiatric: Present normal affect and cooperative Assessment and Plan *Assessment and plan (1) Acute hypoxemic respiratory failure: Status: Acute Category: Medical Code(s): J96.01 - Acute respiratory failure with hypoxia (2) Acute exacerbation of chronic obstructive pulmonary disease: Status: Acute Category: Medical Code(s): J44.1 - Chronic obstructive pulmonary disease with (acute) exacerbation (3) Tobacco use disorder: Status: Acute Category: Medical Code(s): F17.200 - Nicotine dependence, unspecified, uncomplicated Plan Ms. Mason is a 70-year-old female current smoker greater than [id number] smoking last seen in the hospital September 2024 for worsening respiratory distress discharged home on oxygen supplementation and Trelegy 100 inhaler instructed presumed COPD exacerbation presented to the ER again with worsening respiratory distress and pulmonary was called for further evaluation and management. Admits worsening respirations for the last 2 to 3 weeks. No worsening cough or productive phlegm Afebrile. Hemodynamically stable. No evidence of significant leukocytosis. Blood gas upon admission mild hypercarbic respiratory failure 7.32, 52.5. COVID-19 and flu PCR panel negative. Chest x-ray upon admission continue to hyperinflated lung moralez with no evidence of consolidative/airspace changes. Patient has not been using a Trelegy 100 inhaler secondary to intense compliance issues. Continue to smoke. Symptoms on a daily basis. Chest decreased breath sounds. No significant wheezing. Interval Update: No acute respiratory vents overnight. Continue bleeding oxygen equipment. CTA PE protocol significant emphysematous changes. No pulmonary embolism. No dense consolidative/airspace changes. Plan: Continue oxygen supplementation to maintain O2 saturation below 89% and above. Currently needing 3 to 4 L to maintain O2 saturation goal of 89% and above. Patient needs oxygen prior to discharge. Breztri inhaler 2 puffs twice daily. Patient admits financial constraints and refilling her Breztri inhaler. If so we will continue DuoNebs every 6 hours along with Pulmicort every 12 scheduled until her clinic visit DuoNebs 4 times daily as needed Prednisone 40 mg daily to complete a total of 5-day course Patient will also need nebulization machine prior to discharge # Thank you for involving pulmonary in this patient care. Will follow patient pulmonary clinic 1 to 2 weeks postdischarge.
[2025-08-25] MEDS: ESCITALOPRAM 20MG TABLET 20 MG PO (08:19)
--- NOTE | 2025-08-25 08:38 | PC.NURSE ---
pt room air sat is 88%
[2025-08-25 08:39] VITALS: O2SAT 88
--- NOTE | 2025-08-25 09:45 | P.DS_ITS ---
<Statement entered by Aiden Dior MD - 08/27/25 15:40> Agree with plan of care as outlined by the REAL ESTATE TEACHER. Will need close follow-up with pulmonology within 1 week for suspected COPD exacerbation. General Admission date:: 08/22/25 Discharge date: 08/25/25 HPI HPI HPI: Ms. Mason is a 70-year-old female who presented to the emergency department today due to shortness of breath. Patient has a primary medical history of COPD exacerbation, chronic lung disease, and depression. She presented with increasing shortness of breath for the last few weeks, worsening over the past 72 hours. Patient initially was tachypneic, tachycardic, and oxygen saturation was noted at 72%. She states she did use her rescue inhaler multiple times without improvement. She denies chest pain, abdominal pain, fevers, chills, nausea, vomiting, diarrhea. She states that she does not have a PCP and has been hospitalized in the past for COPD exacerbation but has not followed up with a export specialist. Patient was placed on 4 L nasal cannula and oxygen saturation of greater than 90% was achieved. She was given magnesium, DuoNebs x 3, crystalloid bolus, and IV methylprednisolone. Chest x-ray showed flattening of the diaphragm with interstitial opacities consistent with chronic lung disease versus atypical pneumonia. No leukocytosis, no anemia, no electrolyte abnormalities, normal kidney function noted. Hospital Course Hospital Course Hospital Course: Ms. Mason is a 70-year-old female who presented to the emergency department due to shortness of breath. Patient has a primary medical history of COPD exacerbation, chronic lung disease, and depression. She presented with increasing shortness of breath for the last few weeks, worsening over the past 72 hours prior to admission. Patient initially was tachypneic, tachycardic, and oxygen saturation was noted at 72%. She states she did use her rescue inhaler multiple times without improvement. She denies chest pain, abdominal pain, fevers, chills, nausea, vomiting, diarrhea. She states that she does not have a PCP and has been hospitalized in the past for COPD exacerbation but has not followed up with a export specialist. Patient was placed on 4 L nasal cannula and oxygen saturation of greater than 90% was achieved. She was given magnesium, DuoNebs x 3, crystalloid bolus, and IV methylprednisolone. Chest x-ray showed flattening of the diaphragm with interstitial opacities consistent with chronic lung disease versus atypical pn eumonia. No leukocytosis, no anemia, no electrolyte abnormalities, normal kidney function noted. I was consulted by the ED physician who requested hospital admission for acute hypoxic respiratory failure, I agreed to admit the patient for further care. Plan of care as follows: Patient continues to necessitate inpatient care due to increased oxygen supplementation need and steroids. Anticipate discharge in the next 1 to 2 days. #Acute hypoxemic respiratory failure #Chronic lung disease ? Patient's room air saturation was 88% at rest. Patient dropped to 83% with activity. Patient will require continuous O2 at 3 L nasal cannula at discharge. ? Pulmonology recommending chest CTA due to increased oxygen demand but clinically improving. Chest CTA shows no pulmonary embolism or dissection, shows advanced centrilobular emphysema and 3 mm nodule in the posterior left upper lobe. Recommending 1 year follow-up CT. ? Patient was able to wean to 3 L nasal cannula and O2 saturation was greater than 90%. She may require increased O2 with activity/ambulation. On admission patient was tachypneic but respirations slowed and are within normal range with O2 supplementation. Patient received ceftriaxone 1 g and azithromycin 500 mg IV in the ED. D-dimer 0.60, negative troponin, full respiratory panel negative. Antibiotics were not continued due to low suspicion for infection. ? Pulmonology consulted recommend Breztri inhaler twice daily, prednisone 40 mg daily for total of 5 days, nebulizer machine ordered at discharge, DuoNebs 4 times daily. Will discharge home with 1 additional day of prednisone 40 mg. Patient's Breztri not covered by insurance, over $400. Patient will be sent home with inhaler from her admission, after inhaler is finished patient can continue with Pulmicort scheduled twice daily. ? WBC elevated at 17.1 in the setting of steroid use. Electrolytes stable, kidney function within normal limits, magnesium 2.0. Blood cultures continue to show no growth after 48 hours. #Tachycardia ? Patient has been tachycardic heart rate between 100?140. Patient states that her heart rate typically runs around 100 at baseline. Echo ordered for cardiac evaluation, echo shows no abnormalities. Will hold on beta-елена at this time due to acute illness and steroid use. May consider beta-елена if tachycardia persist once exacerbation is managed. #Underweight, BMI 17.8 ? Patient is very thin, BMI 17.8. Nutrition consulted. Patient appears to have low muscle mass, it does appear her weight is stable through previous visits. ? Patient was seen by nutrition who recommended supplements daily, patient declined. Education provided on maintaining and improving nutrition status. #Tobacco use disorder ? Discussed smoking cessation, patient endorses smoking approximately 1 PPD. Patient states she will purchase nicotine patches [id number]. #Anxiety ? Patient should continue escitalopram 20 mg daily for her anxiety. After long discussion with patient she feels that smoking is her way to cope with her intense anxiety she feels. She is agreeable to start BuSpar 10 mg twice daily. Prior to admission patient did not have PCP, she will be set up with Nikky Pinzon APRN at discharge for further management of her chronic conditions. Total time spent on discharge 36 minutes in counseling, documentation, chart review, and direct care with patient. Exam Data for Last 24 hours Vital signs and Labs for Last 24 Hours: Temp Pulse Resp BP Pulse Ox O2 Del Method O2 Flow Rate 97.7 F 98 H 16 126/63 88 L Nasal Cannula 4 08/25/25 08:00 08/25/25 08:00 08/25/25 08:00 08/25/25 08:00 08/25/25 08:39 08/25/25 09:00 08/25/25 09:00 FiO2 32 08/23/25 06:10 Laboratory Results - last 24 hr 08/25/25 05:38: WBC 17.1 H, RBC 5.00, Hgb 14.6, Hct 45.7, MCV 91.4, MCH 29.2, MCHC 31.9, RDW 13.4, Plt Count 278, MPV 10.3, Neut % (Auto) 67.4, Lymph % (Auto) 22.7, Winston % (Auto) 8.4, Eos % (Auto) 0.5, Baso % (Auto) 0.4, Neut # (Auto) 11.6 H, Lymph # (Auto) 3.9, Winston # (Auto) 1.4 H, Eos # (Auto) 0.1, Baso # (Auto) 0.1, Sodium 134 L, Potassium 3.6, Chloride 103, Carbon Dioxide 30, BUN 9, Creatinine 0.60, Estimated Creat Clear 39, Estimated GFR 99, Est GFR ( Amer) 120, Glucose 86, Calcium 8.1 L, Magnesium 2.0, Total Bilirubin 0.4, AST 27, ALT 16, Alkaline Phosphatase 70, Total Protein 5.7 L, Albumin 3.8 D, Globulin 1.9, Albumin/Globulin Ratio 2.0 H I & O for Last 24 hours: Intake & Output 08/22/25 08/23/25 08/24/25 08/25/25 23:59 23:59 23:59 23:59 Intake Total 2580 / 2580 2510 / 2510 1400 / 1400 360 / 360 Output Total 550 / 550 1400 / 1400 0 / 0 Balance 2580 / 2580 1960 / 1960 0 / 0 360 / 360 Weight 42.638 kg 45.359 kg 45.269 kg 45.994 kg Microbiology Reports for the Last 24 Hours: Microbiology 08/22/25 15:00 Sputum - Expectorated Sputum Gram Stain - Final 08/22/25 15:00 Sputum - Expectorated Sputum Sputum Culture - Final 08/22/25 09:25 Blood Blood Culture - Preliminary NO GROWTH AFTER 48 HOURS 08/22/25 08:55 Blood Blood Culture - Preliminary NO GROWTH AFTER 48 HOURS Constitutional Constitutional: no acute distress, thin, cachectic, chronically ill appearing and cooperative *Routine HEENT Exam Head: Present normocephalic and atraumatic Eye: Present EOMI and PERRL ENT: Present mucous membranes moist *Routine Neck Exam Neck: Present supple; Absent lymphadenopathy *Routine Respiratory Exam Respiratory: Present prolonged expiratory phase and wheezes; Absent rhonchi or crackles *Routine Cardiovascular Exam Cardiovascular: Present RRR, Normal S1 and Normal S2; Absent murmur *Routine Abdominal Exam Abdominal: Present soft and normoactive bowel sounds; Absent tenderness *Routine Rectal Exam Patient deferred: visual exam *Routine Exam Patient deferred: external exam *Routine Extremities Exam Extremities: Present full ROM and pulses intact; Absent cyanosis, clubbing or edema *Routine Skin Exam Skin: Present intact, dry and warm; Absent rash *Routine Neurological Exam Neurological: Present alert, oriented X3 and moving all extremities; Absent altered mental status Results Data Completed and Pending Labs on day of discharge: Labs from last 24 hours 08/25/25 05:38 WBC 17.1 H RBC 5.00 Hgb 14.6 Hct 45.7 MCV 91.4 MCH 29.2 MCHC 31.9 RDW 13.4 Plt Count 278 MPV 10.3 Neut % (Auto) 67.4 Lymph % (Auto) 22.7 Winston % (Auto) 8.4 Eos % (Auto) 0.5 Baso % (Auto) 0.4 Neut # (Auto) 11.6 H Lymph # (Auto) 3.9 Winston # (Auto) 1.4 H Eos # (Auto) 0.1 Baso # (Auto) 0.1 Sodium 134 L Potassium 3.6 Chloride 103 Carbon Dioxide 30 BUN 9 Creatinine 0.60 Estimated Creat Clear 39 Estimated GFR 99 Est GFR ( Amer) 120 Glucose 86 Calcium 8.1 L Magnesium 2.0 Total Bilirubin 0.4 AST 27 ALT 16 Alkaline Phosphatase 70 Total Protein 5.7 L Albumin 3.8 D Globulin 1.9 Albumin/Globulin Ratio 2.0 H Preliminary micro results at discharge 08/22/25 09:25 Blood Culture - Preliminary Blood NO GROWTH AFTER 48 HOURS 08/22/25 08:55 Blood Culture - Preliminary Blood NO GROWTH AFTER 48 HOURS DS: Diagnosis Discharge Diagnosis (1) Acute hypoxemic respiratory failure: Status: Acute Code(s): J96.01 - Acute respiratory failure with hypoxia (2) Acute exacerbation of chronic obstructive pulmonary disease: Status: Acute Code(s): J44.1 - Chronic obstructive pulmonary disease with (acute) exacerbation (3) Tobacco use disorder: Status: Acute Code(s): F17.200 - Nicotine dependence, unspecified, uncomplicated (4) Anxiety: Status: Acute Code(s): F41.9 - Anxiety disorder, unspecified (5) Underweight (BMI < 18.5): Status: Acute Code(s): R63.6 - Underweight; Z68.1 - Body mass index [BMI] 19.9 or less, adult (6) Tachycardia: Status: Acute Code(s): R00.0 - Tachycardia, unspecified (7) Chronic lung disease: Status: Acute Code(s): J98.4 - Other disorders of lung Meds Home Medications and Allergies Home Medications ?Medication ?Instructions ?Recorded ?Confirmed ?Type albuterol sulfate 90 mcg/actuation 2 puff inhalation Q 6HP PRN 04/21/25 08/22/25 Rx aerosol inhaler (Ventolin HFA) Shortness Of Breath #8. 5 grams escitalopram oxalate 20 mg tablet 20 mg PO DAILY #90 t abs 04/21/25 08/22/25 Rx (Lexapro) budesonide 0.5 mg/2 mL suspension 0.5 mg (2 mL) inhala tion BID #60 mL 08/25/25 Rx for nebulization (Pulmicort) budesonide 160 mcg-glycopyr 9 2 puff inhalation BIDRT #10.7 grams 08/25/25 Rx mcg-formot 4.8 mcg/actuation HFA inhaler (Breztri Aerosphere) buspirone 10 mg tablet 10 mg PO BID #60 tabs Rx ipratropium 0.5 mg-albuterol 3 mg 3 ml inhalation Q6HP PRN Shortness 08/25/25 Rx (2.5 mg base)/3 mL nebulization Of Breath Or Wheezing #180 mL soln prednisone 20 mg tablet 40 mg (2 x 20 mg) PO DAILY 1 day 08/25/25 Rx #2 tabs New Prescriptions to Start Prescriptions: ipratropium-albuterol Patito Mcgovern budesonide [Pulmicort] Patito Mcgovern [id number] [Breztri Aerosphere] Patito Mcgovern buspirone Froilan,Patito prednisone Patito Mcgovern Allergies Allergy/AdvReac Type Severity Reaction Status Date / Time No Known Allergies Allergy Unverified 07/19/19 12:47 Discharge Plan Disposition Patient Disposition: Home, Self-Care Condition: Fair Discharge Order Discharge Orders: Discharge Order (Routine); Ordered 08/25/25 Ordered By: Patito Mcgovern Follow up Plan Follow up with: Kayce Hess APRN [Nurse Practitioner, Medical] - 08/30/25 2:45 pm Osei Sims MD [Physician, Pulmonology] - 08/31/25 1:00 pm Prescriptions/Medication Reconciliation: New ipratropium-albuterol 0.5 mg-3 mg(2.5 mg base)/3 mL Solution For Nebulization 3 ml inhalation Q6HP PRN (Reason: Shortness Of Breath Or Wheezing) Qty: 180 0RF prednisone 20 mg Tablet 40 mg PO DAILY 1 Days Qty: 2 0RF Breztri Aerosphere 160-9-4.8 mcg/actuation Hfa Aerosol Inhaler 2 puff inhalation BIDRT Qty: 10.7 0RF buspirone 10 mg tablet 10 mg PO BID Qty: 60 0RF budesonide [Pulmicort] 0.5 mg/2 mL suspension for nebulization 0.5 mg inhalation BID Qty: 60 0RF Rx Instructions: start after Breztri is finished Continued albuterol sulfate [Ventolin HFA] 90 mcg/actuation HFA aerosol inhaler 2 puff inhalation Q6HP PRN (Reason: Shortness Of Breath) Qty: 8.5 2RF escitalopram oxalate [Lexapro] 20 mg tablet 20 mg PO DAILY Qty: 90 2RF Other Ambulatory Orders: Home Medical Equipment (Routine) Location: None Selected Ordered By: Patito Mcgovern Home Medical Equipment (Routine) Location: None Selected Ordered By: Patito Mcgovern Problem Reconciliation Problems Reviewed?: Yes Patient Discharge Instructions ACTIVITY: Continue current activity DIET: continue same diet Stand Alone Forms: [facility] Work Release Patient Instructions: Chronic Obstructive Pulmonary Disease, Stop Light COPD Print Language: Kyrgyz Providers Primary Care Provider: Provider,Referral Admit Provider: Aiden Dior Attending Provider: Aiden Dior
--- NOTE | 2025-08-25 10:07 | CARE MANAGER ---
Patient needs O2 and nebulizer and requests [facility]. Information sent.
[2025-08-25 10:16] LABS: Anion Gap 4.6 mEq/L (5-15); Carbon Dioxide 30 mmol/L (22.0-30.0)
--- NOTE | 2025-08-28 09:59 | SW/DCPLANNER ---
Spoke with patient on the phone. Patient stated that she is doing good. patient stated that she is aware of her upcoming appointments. 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 Patient stated that she has no concerns or questions at this time. Indu Gutiérrez
== END 2025-08-25 11:39 | disposition home or self-care (01) | DRG 189 ==
LOC: ER 10:29 → 2ND 11:05
PROVIDERS: Admitting Provider Student in an Organized Health Care Education/Training Program; Emergency Provider Emergency Medicine; Visit Provider Student in an Organized Health Care Education/Training Program
DX: J96.01 Acute respiratory failure with hypoxia (principal); J44.1 Chronic obstructive pulmonary disease with (acute) exacerbation; Z68.1 Body mass index [BMI] 19.9 or less, adult; J43.2 Centrilobular emphysema; F32.A Depression, unspecified; J96.92 Respiratory failure, unspecified with hypercapnia; D72.829 Elevated white blood cell count, unspecified; F17.210 Nicotine dependence, cigarettes, uncomplicated; F41.9 Anxiety disorder, unspecified; R63.6 Underweight; R91.1 Solitary pulmonary nodule; R00.0 Tachycardia, unspecified; Z79.899 Other long term (current) drug therapy; Z71.6 Tobacco abuse counseling
CPT/HCPCS: 0223U; 36415; 71045; 71275; 80053; 80061; 82803; 83036; 83735; 83880; 84439; 84443; 84484; 85007; 85025; 85378; 87040; 87070; 87205; 87636; 89220; 93005; 93306; 94640; 94761; 99285; J0456; J0696; J1650; J2919; J3475; J7030; J7050; J7614; Q9967

== ENCOUNTER 2025-09-22 12:53 | Outpatient (CLI) | payer BC, MEDICARE, SELFPAY ==
--- OUTSIDE RECORDS SUMMARY | 2025-09-22 12:57 | XMS_ITS | Data Portability ---
Author Organization [facility] AMIRA Hooker [place] CLOS[facility] Address [address] [facility] [place] [address] Assessment No assessment recorded. Plan of Treatment Reminders Order Date Submit Date Provider Last Modified By Organization Details Last Modified Time Details Appointments None recorded. Lab HPV DNA, high-risk 2016 [facility], [address] [place] [address], [phone], 7 17:01:49 cytology, vaginal/c ervical 2016 [facility], [address] [place] [address], [phone], 7 11:59:17 Referral None recorded. Procedures None recorded. Surgeries None recorded. Imaging None recorded. Medication Orders Lexapro 20 mg tablet 2016 INTERFACE [facility] 591, [address], [address], 7 12:12:18 Patient TargetsNo targets recorded. Patient Instructions Encounter Date Encounter Id Patient Instructions Last Modified By Organization Details Last Modified Time 08/20/2017 [id number] learning about mood disorders BHAVIK Not available 08/22/2017 16:13:20 learning about cervical cancer screening BHAVIK Not available 08/22/2017 16:14:20 62 yo here today for annual exam, h/o LEEP - normal paps since, no [place] complaints Normal exam, Pap with HPV cotesting - if normal, next pap in 3 years Mammo later today Colonoscopy recommended - pt declines Refill on Lexapro sent in Dexa age 67 unless indicated sooner. RTC 1 year annual, PRN [email or web address] Not available 08/20/2017 12:23:45 Reason for Referral None Reported. Results Created Date Observation Date Name Description Value Unit Range Abnormal Flag Note LastModifiedBy Organization Detail LastModifiedTime 08/20/20 17 08/24/2017 HPV DNA, high- risk high risk HPV Not Detect ed not detect ed normal This test was perfo rmed using the APTIM A HPV Assay ([employer] . This assay detec ts E6/E7 viral messe nger RNA (mRNA ) from 14 high- risk HPV types (16,1 8,31, 33,35 ,39,4 5,51, 52,56 ,58,5 9,66, 68). TEST PERFO RMED AT: [facility] [id number] RAJWINDER Arreola MD Not Available [facility] [address] [place] [address], [place], [phone], 08/24/2017 17:01:49 08/20/20 17 08/20/2017 cytol ogy, vagin al/ce rvica l gynecologica l cytology procedure SEE BELOW [facility] Depar tment of Patho logy GYNEC OLOGI CANDELARIA CYTOL OGY REPOR T NAME: BETSY MASON PATHO LOGY NO.: [id number] Copy to: [facility] E OF SPECI MEN: CERVI CANDELARIA/E NDOCE RVICA L-THI N PREP RELEV ANT HISTO RY: No LMP given . Comme nt: HPV CO-TE STING IF LUZ L RECHE CK 3 YRS SPECI MEN ADEQU ACY SATIS FACTO RY FOR EVALU ATION ENDOC ERVIC AL/TR ANSFO RMATI ON ZONE COMPO NENT ABSEN T GENER AL CATEG ORIZA TION NEGAT GUNJAN FOR INTRA EPITH ELIAL LESIO N OR MALIG MONISHA COMME NT: SPECI MEN REFER RED FOR ADDIT IONAL TESTI NG IDA MORALES RD, CT( CP) Christine d Out Date: 10/31 /2017 11:58 Cervi candelaria/v agina l cytol ogy is a scree pauline test with a recog nized false negat gunjan rate. New techn ologi es may decre ase, but will not elimi ray false negat gunjan resul ts. Regul ar cytol ogy scree pauline is recom nikos d to minim ize false negat gunjan resul ts. The ThinP rep(R ) Imagi ng syste m is used to roseline t in prima ry cervi candelaria cance r scree pauline of ThinP rep(R ) Pap test slide s. 1 Not Available [facility] [address] [place] [address], [phone], 08/25/2017 11:59:17 08/20/20 17 08/20/2017 MAMMO , scree pauline, tomos ynthe sis, bilat eral, w/ CAD [facility] [address] [place] [address], [place] [address] Patiollie banks Name: SHERRY banks : [birth year] Age: 62 years Patiollie t Orderi ng Provid er: SHELDON OAKES EXAM DATE: 2016 EXAM: MG SCREEN ING ANNE MAMMOG HAN INDICA TION: Routin e screen ing. PROCED URE: Multis lice imagin g of both breast s was perfor med in standa rd projec tions using Hologi c Seleni a Dimens ions tomosy nthesi s equipm ent (3D mammog saul) . 2D images were create d from the 3D datase t using C-View softwa re. The study was read with the assist ance of Comput er Aided Detect ion (CAD) softwa re. COMPAR JONI: This was compar ed with previo us mammog thom dated 2015, 2014, 2013 FINDIN GS: The breast s are hetero geneou sly dense. This may lower the sensit ivity of mammog saul. There is no suspic ious mass or cluste r of calcif icatio ns. No krzysztof ectura l distor tion. There is a biopsy marker in the right breast . IMPRES VANE: BI-RAD S catego ry 2, Benign . There is no eviden ce of malign alo. Screen ing mammog thom are recomm ended in one year. Result s were mailed or given to the kody Escobar reted By: Immanuel peterson MD Electr onical ly Signed By: Immanuel peterson MD on 2016 2:22 PM [email or web address] [facility] [address] [place] [address], [phone], 08/20/2017 16:33:51 10/12/20 18 10/12/2018 MAMMO , scree pauline, tomos ynthe sis, bilat eral, w/ CAD [facility] [address] [address] Sussyollie banks Name: SHERRY banks : [birth year] Age: 63 years Patiollie banks Orderi ng Provid er: TRISTIAN LAST EXAM DATE: 2017 EXAM: MG SCREEN ING ANNE MAMMOG HAN INDICA TION: Routin e screen ing. PROCED URE: Multis lice imagin g of both breast s was perfor med in standa rd projec tions using Hologi c Seleni a Dimens ions tomosy nthesi s equipm ent (3D mammog saul) . 2D images were create d from the 3D datase t using C-View softwa re. The study was read with the assist ance of Comput er Aided Detect ion (CAD) softwa re. COMPAR JONI: This was compar ed with previo us mammog thom dated 2016, 2015, 2014 FINDIN GS: The breast s are hetero geneou sly dense. This may lower the sensit ivity of mammog saul. There is no suspic ious mass or cluste r of calcif icatio ns. No krzysztof ectura l distor tion. Scatte red benign calcif icatio ns bilate rally. IMPRES VANE: BI-RAD S catego ry 2, Benign . There is no eviden ce of malign alo. Screen ing mammog thom are recomm ended in one year. Result s were mailed or given to the kody Escobar reted By: Aiden Wall MD Electr onical ly Signed By: Aiden Wall MD on 2017 3:06 PM [facility] [address], [phone], 10/15/2018 21:33:21 Result Notes Documentation Provider Name and Address Organization Details Recorded Time Mammo, Screening, Tomosynthesis, Bilateral, W/ Cad : [place] [address] Patient Name: SHERRY MASON Patient : 1955 Age: 62 years Patient Ordering Provider: SHELDON OAKES EXAM DATE: 08/20/2017 EXAM: MG SCREENING ANNE MAMMOGRAM INDICATION: Routine screening. PROCEDURE: Multislice imaging of both breasts was performed in standard projections using [employer] tomosynthesis equipment (3D mammography). 2D images were created from the 3D dataset using C-View software. The study was read with the assistance of Computer Aided Detection (CAD) software. COMPARISON: This was compared with previous mammograms dated 07/11/2016, 05/16/2015, 04/17/2014 FINDINGS: The breasts are heterogeneously dense. This may lower the sensitivity of mammography. There is no suspicious mass or cluster of calcifications. No architectural distortion. There is a biopsy marker in the right breast. IMPRESSION: BI-RADS category 2, Benign. There is no evidence of malignancy. Screening mammograms are recommended in one year. Results were mailed or given to the patient. Interpreted By: Immanuel Tejeda MD LAST PA-C [address] [place] [address], [phone], [facility] 08/20/2017 16:33:51 Mammo, Screening, Tomosynthesis, Bilateral, W/ Cad : [address] [address] Patient Name: SHERRY MASON Patient : 1955 Age: 63 years Patient Ordering Provider: GIO LAST EXAM DATE: 10/12/2018 EXAM: MG SCREENING ANNE MAMMOGRAM INDICATION: Routine screening. PROCEDURE: Multislice imaging of both breasts was performed in standard projections using [employer] tomosynthesis equipment (3D mammography). 2D images were created from the 3D dataset using C-View software. The study was read with the assistance of Computer Aided Detection (CAD) software. COMPARISON: This was compared with previous mammograms dated 08/20/2017, 07/11/2016, 05/16/2015 FINDINGS: The breasts are heterogeneously dense. This may lower the sensitivity of mammography. There is no suspicious mass or cluster of calcifications. No architectural distortion. Scattered benign calcifications bilaterally. IMPRESSION: BI-RADS category 2, Benign. There is no evidence of malignancy. Screening mammograms are recommended in one year. Results were mailed or given to the patient. Interpreted By: Aiden Wall MD MORENO MD [address] [place] [address], [phone] [place] [address] 10/15/2018 10:05:30 Procedures Surgical History Date Name Laterality Status Provider Name and Address Organization Details Recorded Time 8 Date of Last Mammogram completed Loyda Howe [facility] 06/22/2019 09:05:39 7 Date of Last Pap Smear completed Britney Blanco [facility] 08/26/2017 09:44:20 0 Tubal Ligation completed GIO LAST PA-C [address] [place] [address], [phone] [place] [address] 08/20/2017 12:20:23 0 Conization of cervix [place], [phone] [place] [address] 08/20/2017 12:21:38 Dilation and Curettage [place], [phone] [place] [address] 08/20/2017 12:21:15 Imaging Results None recorded. Procedure Notes None recorded. Medical Equipment None Reported. Allergies No known drug allergies Medications Name Sig Start Date Stop Date Status Note LastModified by Organization Details LastModified Time azithromycin 250 mg tablet active Not Available Not Availabl e Not Available oseltamivir 75 mg capsule 08/20 completed Not Available Not Available Not Available escitalopram 20 mg tablet Daily active Not Available Not Available Not Available Vitals Date Recorded Body weight Systolic And Diastolic Provider Name and Address Organization Details Last Updated DateTime 08/20/2017 67687.27 g 120/76 mm[Hg] Radha Bell [facility] 08/20/2017 11:52:32 Social History Question Answer Notes LastModified by Organizat ion Details LastModified Time Tobacco Smoking Status Current Every Day Smoker Radha Selfmendel [facility] 08/20/2017 11:58:34 What Was The Date Of Your Most Recent Tobacco Screening? 08/20/2017 Information n ot available 12/13/2019 How Much Tobacco Do You Smoke? 0.5 PPD Information not available 08/20/2017 How Many Years Have You Smoked Tobacco? 43 Information not available 08/20/2017 Sex: Unknown Functional Status None recorded. Mental Status None recorded. Family History Relationship Description Onset Age of this Age Resolved Age Notes LastModified by Organization Details LastModified Time Mother Neoplasm of bone marrow 40 [email or web address] Not available 11:57:52 Maternal Grandmother Neoplasm of bone marrow [email or web address] Not available 11:58:10 Medical History Condition Response Diabetes N Ovarian Cancer N Colon Cancer N Breast Cancer N Cancer N Stroke N Thyroid Problems N Sleep Apnea N High Cholesterol N Heart Attack ([place]) N Deep Vein Thrombosis N Hypertension N Gynecological History Statement/Question Response Abnormal Pap Yes Date of Last Mammogram 10/12/2018 Post Menopausal Bleeding N STIs/STDs N Current Control Method Menopause If Post Menopausal, Age at Menopause 52 Most Recent Bone Density Sexually Active? Y Menses Monthly N Date of Last Pap Smear 08/20/2017 Colonoscopy Ovarian Cancer Screening? N Obstetrics History GPAL:G 2 P 1 0 1 0 Type Value Full Term 1 Spontaneous 1 Total 2 Past Encounters Encounter ID Performer Location Encounter Start Date Encounter Closed Date Diagnosis/Indication Diagnosis SNOMED-CT Code Diagnosis ICD10 Code Diagnosis IMO Codes Diagnosis Note [id number] [facility] [address] 01/26/2017 20:58:34 01/26/2017 20:58:34 [id number] GIO LAST PA-C [facility] [address] [place] [address] 08/20/2017 11:30:11 08/20/2017 16:49:31 Depressive disorder 85059443 F32.9 Routine gy necologic examination done 7719641646 9101 Z01.419 Infection screening 2437 43610 Z11.51 Screening for malignant neoplasm of cervix 877008966 Z12.4 Health Concerns Section Related Observation LastModified by Organization Detai ls LastModified Time None Recorded Concern Status LastModified by Organization Details LastModified Time None Recorded Advance Directives Directive None Recorded Payers Insurance Date Sequence Insurance Name Policy Number Policy Becker Covered Member ID Becker Member ID Guarantor Name 06/22/2019 1 [place] [id number] Sherry Mason [id number] Sherry Mason Notes Date Note Type Note Provider Name and Address Organization Details Recorded Time 7 text/html 62 yo here today for annual examNO fam h/o breast, ovarian or uterine cancerNO vaginal bleedingColonoscopy recommended - she declines for nowMammo scheduled for todayH/O abnormal pap but that was a long time ago GIO LAST PA-C [address] [place], [address], [facility] 08/20/2017 12:24:17 OBGyn Episode No OBEpisode recorded.
[2025-09-22] MEDS: IPRATROPIUM/ALBUTEROL 3 ML NEB IH (14:03)
== END 2025-09-22 23:59 | disposition home or self-care (01) ==
LOC: RT 12:54
PROVIDERS: PCP Nurse Practitioner Family; Visit Provider Internal Medicine Pulmonary Disease
DX: J44.9 Chronic obstructive pulmonary disease, unspecified (principal); R94.2 Abnormal results of pulmonary function studies
CPT/HCPCS: 94060; 94618; 94726; 94729

== ENCOUNTER → 2025-10-17 15:12 | Outpatient (CLI) | payer BC, SELFPAY | LOC: SL 15:13 | PROVIDERS: PCP Nurse Practitioner Family; Visit Provider Internal Medicine Pulmonary Disease | DX: J43.9 Emphysema, unspecified (principal) | CPT/HCPCS: 94762 ==